=== PATIENT | female | born 1935 | race Caucasian/White ===

== ENCOUNTER → 2017-01-03 | Outpatient (CLI) | payer OTHER ==
[~2017-01-03] MED LIST: ASPI81TA28 PO; ATOR10TA88 PO; CEPH500C2 PO; CITA20TA9 PO; CYM/30 PO; GLIM2TAB2 PO; LISI5TAB PO
[2017-01-03 09:47] LABS: BASO % 0.7 %; BASO ABS # 0.04 K/uL (0-0.2); COMPLETE YES; EOS % 1.5 %; HEMATOCRIT 48.1 % (37-47); IG% 0.2 %; LYMPH % 17.8 %; LYMPH ABS # 1.06 K/uL (1.2-3.4); MEAN CELL VOLUME 91.6 fL (80-100); MEAN CORPUSCULAR HGB CONC 33.9 g/dl (32-36); MEAN PLATELET VOLUME 12.5 fL (7.4-10.4); MONO % 7.7 %; NEUT % 72.1 %; PLATELET COUNT 178 K/uL (130-400); RED BLOOD COUNT 5.25 M/uL (4.2-5.4); WHITE BLOOD COUNT 5.94 K/uL (4.8-10.8)
[2017-01-03 10:01] LABS: ESTIMATED AVERAGE GLUCOSE 114 mg/dl; HA1C FLAG Normal (Normal)
[2017-01-03 10:34] LABS: ALT/SGPT 28 U/L (12-78); AST/SGOT 24 U/L (15-37); BLOOD UREA NITROGEN 14 mg/dl (7-18); BUN/CREATININE RATIO 20.8 (10-20); CALCIUM 8.6 mg/dl (8.5-10.1); CARBON DIOXIDE 31 mmol/L (21-32); CHLORIDE 108 mmol/L (98-107); CHOLESTEROL 98 mg/dl (0-200); CREATININE 0.67 mg/dl (0.60-1.20); GLUCOSE 99 mg/dl (70-99); SODIUM 145 mmol/L (136-145); TRIGLYCERIDES 91 mg/dl (0-150); VERY LOW DENSITY LIPOPROT CALC 18 mg/dl
[2017-01-03 10:36] LABS: ALB/GLOB RATIO 1.1 (0.9-2); ALKALINE PHOSPHATASE 61 U/L (45-117); CHOLESTEROL/HDL RATIO 1.8; HDL CHOLESTEROL 55 mg/dl; LDL CHOLESTEROL CALCULATED 25 mg/dl
[2017-01-03 11:56] LABS: RATIO 5.9 mcg/mg (0-30.0)
== END | disposition home or self-care (01) ==
LOC: C.LAB 08:39
PROVIDERS: ATTEND Nurse Practitioner Family
DX: E11.9 Type 2 diabetes mellitus without complications (principal); F32.9 Major depressive disorder, single episode, unspecified; E78.5 Hyperlipidemia, unspecified; I11.9 Hypertensive heart disease without heart failure

== ENCOUNTER 2017-03-14 11:42 | Observation (INO) | payer OTHER ==
[~2017-03-14] VITALS: Ht 154.9 cm; Wt 80.0 kg
[~2017-03-14 11:42] MED LIST changes: +ATOR10TA82 PO; -ATOR10TA88 PO; -CEPH500C2 PO; -CYM/30 PO
[2017-03-14] MEDS ORDERED: LORAZEPAM 2 MG/ML 1 ML VIAL IV STA (12:31)
[2017-03-14] MEDS ORDERED: SODIUM CHLORIDE 0.9% 1000ML 1,000 ML IV STA (12:31)
[2017-03-14] MEDS ORDERED: FENTANYL CITRATE INJ 50 MCG/1 ML 2 ML VIAL IV STA (12:31)
[2017-03-14] MEDS ORDERED: CYM/30 PO (12:34)
--- NOTE | 2017-03-14 12:34 | EMERGENCY ROOM VISIT NOTE ---
History Report prepared by Digna: Fawad Massey Under the Supervision of: Dr. Gina Salter M.D. First contact with patient: 12:05 Chief Complaint: FALL Stated Complaint: FALL History of Present Illness The patient is a 81 year old female who presents to the Emergency Room with complaints of a sudden fall prior to arrival today. She says that she was walking on weak wooden steps outside her house, and the steps gave out, causing the patient's legs to fall through the wooden steps. The patient now has bilateral leg pain, with lacerations on both her legs. She denies any pain above her hips, and she says that she did not hit her head. She states that her heart rate may be high because she has been anxious after the fall. The patient is able to lift her legs off of the bed. She does have a history of atrial flutter. The patient has a history of 2 knee replacements. She says that she has a history of some foot problems. Per the nursing staff, the patient's blood sugar is 201. Source of History: patient, family Onset: Prior to arrival today Position: other (global - fall) Quality: other (legs falling through wooden steps) Timing: other (sudden) Note: Associated symptoms: Bilateral leg pain, with lacerations on both legs. Currently anxious. Denies any pain above hip or hitting her head. Review of Systems See HPI for pertinent positives & negatives. A total of 10 systems reviewed and were otherwise negative. Past Medical & Surgical Medical Problems: (1) Arthritis (2) Diabetes Surgical Problems: (1) Previous back surgery Family History Cancer Heart disease Social History Smoking Status: Never Smoker Alcohol Use: none Drug Use: none Marital Status: Housing Status: lives with family Occupation Status: retired Current/Historical Medications Scheduled Aspirin (Aspirin Ec), 81 MG PO DAILY Atorvastatin (Lipitor), 10 MG PO DAILY Duloxetine HCl (Cymbalta), 30 MG PO DAILY Glimepiride (Glimepiride), 2 MG PO DAILY Lisinopril (Prinivil), 5 MG PO DAILY Allergies Coded Allergies: Adhesives (Unverified Allergy, Mild, RASH, 10/13/06) Codeine (Unverified Allergy, Mild, 11/28/09) Meperidine (Unverified Adverse Reaction, Unknown, 11/28/09) NAUSEA Morphine (Unverified Adverse Reaction, Unknown, 11/28/09) SEVERE N&V Physical Exam Vital Signs Date Time Temp Pulse Resp B/P Pulse Ox O2 Delivery O2 Flow Rate FiO2 03/14/17 20:10 97 Nasal Cannula 4.0 03/14/17 20:10 37.0 100 18 103/70 97 Nasal Cannula 4.0 03/14/17 19:45 36.2 99 16 132/81 94 Nasal Cannula 4 03/14/17 19:35 96 16 127/82 96 Nasal Cannula 4 03/14/17 19:25 94 16 137/80 96 Mask 10 03/14/17 19:15 101 16 150/90 96 Mask 10 03/14/17 19:05 36.2 114 16 143/72 94 Mask 10 03/14/17 16:24 96 Nasal Cannula 2.0 03/14/17 16:18 110 18 102/64 96 Nasal Cannula 2.0 03/14/17 15:00 113 16 105/74 97 Nasal Cannula 2.0 03/14/17 14:03 93 16 112/66 94 Nasal Cannula 2.0 03/14/17 13:49 100 16 103/63 92 Nasal Cannula 2.0 03/14/17 13:31 95 18 110/58 91 Nasal Cannula 2.0 03/14/17 13:19 94 16 127/91 94 Nasal Cannula 2.0 03/14/17 13:03 96 03/14/17 12:55 101 16 132/93 98 Nasal Cannula 2.0 03/14/17 12:50 132 16 122/96 94 Room Air 03/14/17 12:49 130 131/84 03/14/17 12:19 151 03/14/17 11:57 36.5 120 20 114/79 94 Room Air Physical Exam Vital signs reviewed. General: Generally well-appearing 81 year old female , in no significant distress. HEENT: No scleral icterus, PERRLA, neck supple. Atraumatic. Cardiovascular: Tachycardic and regular, no extra sounds. Pulmonary: Clear to auscultation bilaterally, normal work of breathing. Abdomen: Obese, soft and nontender abdomen. Musculoskeletal: Right crabtree has a large 25 cm v-shaped laceration across crabtree. There is a large hematoma, bleeding is controlled. Left leg has a smaller 7 cm laceration and 1 cm puncture wound with bleeding controlled. Both were full thickness in the muscle. Positive violation of fascia. Cervical, thoracic and lumbar spine are palpated, nontender, no step-off or deformity appreciated. Neurologic: Patient awake alert and oriented x 3, full strength in all 4 extremities. Neurovascularly intact to bilateral lower extremity distally. Skin: Warm, dry, no rash. No significant abrasions/laceration. Medical Decision & Procedures ER Provider Diagnostic Interpretation: X-ray results as stated below per interpretation by me and the radiologist: LEFT TIBIA/FIBULA 2 VIEWS ROUTINE CLINICAL HISTORY: Fall. Laceration. COMPARISON: Left ankle radiographs July 14, 2016. FINDINGS: A wound of the left lower leg is noted. Alignment of the total left knee arthroplasty is anatomic. There is no acute fracture of the left tibia or fibula. An equivocal punctate foreign body projects over the mid shaft of the left tibia. IMPRESSION: 1. No acute fracture of the left tibia or fibula. 2. Laceration overlying the mid shaft of the left tibia. Punctate radiodensity adjacent to the wound could reflect debris or tiny foreign body. 3. Intact total left knee arthroplasty. Electronically signed by: Jorge Carlson M.D. 03/14/2017 1:40 PM Dictated Date/Time: 03/14/2017 1:38 PM RIGHT TIBIA/FIBULA 2 VIEWS ROUTINE CLINICAL HISTORY: Fall. Large laceration. COMPARISON: None FINDINGS: Alignment of the total right knee arthroplasty is anatomic. No periprosthetic fracture or lucency. There is multiple locules of soft tissue gas within the right leg at the level the right knee and proximal right tibia and fibula. There is extensive soft tissue swelling. IMPRESSION: 1. No acute fracture of the right tibia or fibula. Status post total right knee arthroplasty. Hardware intact. 2. Soft tissue gas consistent with laceration with marked soft tissue swelling of the right leg at the level of the knee and proximal right tibia/fibula. Electronically signed by: Jorge Carlson M.D. 03/14/2017 1:34 PM Dictated Date/Time: 03/14/2017 1:32 PM SINGLE VIEW PELVIS CLINICAL HISTORY: Fall. FINDINGS: An AP portable pelvic radiograph is obtained. No prior studies are available for comparison at the time of dictation. The skeletal structures are osteopenic. No fracture is identified involving the hips or bony pelvis. Mild arthritic change is seen in the hips with associated joint space narrowing. Mild sclerotic change is noted in the sacroiliac joints and pubic symphysis. Lumbosacral spondylosis is partially visualized. Numerous phlebolith are identified in the pelvis. Surgical clips and suture material project over the pelvis. The overlying soft tissues are within normal limits. IMPRESSION: Osteopenia and degenerative change as above. There is no radiographic evidence of fracture involving the hips or bony pelvis. Electronically signed by: Ricardo Chris M.D. 03/14/2017 1:34 PM Dictated Date/Time: 03/14/2017 1:33 PM SINGLE VIEW CHEST CLINICAL HISTORY: Fall. FINDINGS: An AP, portable, upright chest radiograph is compared to study dated 08/17/2015. The examination is degraded by portable technique, apical lordotic positioning, and patient rotation. The heart is mildly enlarged and there is atherosclerotic calcification of the thoracic aorta. A large hiatal hernia is noted and there is atelectasis at the left lung base. No airspace consolidation is seen typical for pneumonia and there is no large pleural effusion. Chronic interstitial thickening is unchanged. No pneumothorax is seen. The skeletal structures are osteopenic. The bony thorax is grossly intact. Arthritic change is noted in the shoulders and thoracic spine. Surgical clips are identified in the right axilla. IMPRESSION: 1. Mild cardiac enlargement with no acute cardiopulmonary abnormality. 2. Hiatal hernia. Electronically signed by: Ricardo Chris M.D. 03/14/2017 1:36 PM Dictated Date/Time: 03/14/2017 1:34 PM Laboratory Results 03/14/17 12:15 Red Blood Count 5.33, Mean Corpuscular Volume 88.7, Mean Corpuscular Hemoglobin 30.6, Mean Corpuscular Hemoglobin Concent 34.5, Mean Platelet Volume 11.9, Neutrophils (%) (Auto) 84.5, Lymphocytes (%) (Auto) 9.9, Monocytes (%) (Auto) 4.7, Eosinophils (%) (Auto) 0.3, Basophils (%) (Auto) 0.3, Neutrophils # (Auto) 12.79, Lymphocytes # (Auto) 1.50, Monocytes # (Auto) 0.71, Eosinophils # (Auto) 0.05, Basophils # (Auto) 0.05 03/14/17 12:15 Test 03/14/17 12:10 03/14/17 12:15 03/14/17 12:41 03/14/17 13:00 Bedside Glucose 201 mg/dl (70-90) White Blood Count 15.15 K/uL (4.8-10.8) Red Blood Count 5.33 M/uL (4.2-5.4) Hemoglobin 16.3 g/dL (12.0-16.0) Hematocrit 47.3 % (37-47) Mean Corpuscular Volume 88.7 fL (80-100) Mean Corpuscular Hemoglobin 30.6 pg (25-34) Mean Corpuscular Hemoglobin Concent 34.5 g/dl (32-36) Platelet Count 237 K/uL (130-400) Mean Platelet Volume 11.9 fL (7.4-10.4) Neutrophils (%) (Auto) 84.5 % Lymphocytes (%) (Auto) 9.9 % Monocytes (%) (Auto) 4.7 % Eosinophils (%) (Auto) 0.3 % Basophils (%) (Auto) 0.3 % Neutrophils # (Auto) 12.79 K/uL (1.4-6.5) Lymphocytes # (Auto) 1.50 K/uL (1.2-3.4) Monocytes # (Auto) 0.71 K/uL (0.11-0.59) Eosinophils # (Auto) 0.05 K/uL (0-0.5) Basophils # (Auto) 0.05 K/uL (0-0.2) RDW Standard Deviation 41.6 fL (36.4-46.3) RDW Coefficient of Variation 12.9 % (11.5-14.5) Immature Granulocyte % (Auto) 0.3 % Immature Granulocyte # (Auto) 0.05 K/uL (0.00-0.02) Prothrombin Time 10.9 SECONDS (9.0-12.0) Prothromb Time International Ratio 1.0 (0.9-1.1) Activated Partial Thromboplast Time 27.1 SECONDS (21.0-31.0) Partial Thromboplastin Ratio 1.0 Anion Gap 12.0 mmol/L (3-11) Est Creatinine Clear Calc Drug Dose 46.9 ml/min Estimated GFR () 67.7 Estimated GFR (Non- 58.5 BUN/Creatinine Ratio 15.9 (10-20) Calcium Level 8.8 mg/dl (8.5-10.1) Total Bilirubin 0.7 mg/dl (0.2-1) Direct Bilirubin 0.1 mg/dl (0-0.2) Aspartate Amino Transf (AST/SGOT) 23 U/L (15-37) Alanine Aminotransferase (ALT/SGPT) 33 U/L (12-78) Alkaline Phosphatase 66 U/L (45-117) Total Protein 6.9 gm/dl (6.4-8.2) Albumin 3.6 gm/dl (3.4-5.0) Bedside Troponin I 0.000 ng/ml (0-0.045) Urine Color DK YELLOW Urine Appearance CLOUDY (CLEAR) Urine pH 5.0 (4.5-7.5) Urine Specific Hanna 1.020 (1.000-1.030) Urine Protein NEG (NEG) Urine Glucose (UA) NEG (NEG) Urine Ketones TRACE (NEG) Urine Occult Blood NEG (NEG) Urine Nitrite NEG (NEG) Urine Bilirubin NEG (NEG) Urine Urobilinogen NEG (NEG) Urine Leukocyte Esterase NEG (NEG) Urine WBC (Auto) 1-5 /hpf (0-5) Urine RBC (Auto) 0-4 /hpf (0-4) Urine Hyaline Casts (Auto) 5-10 /lpf (0-5) Urine Epithelial Cells (Auto) >30 /lpf (0-5) Urine Bacteria (Auto) 1+ (NEG) Urine Crystals CALCIUM OXALATE (NONE Laboratory results per my review. Medications Administered Medications (Trade) Dose Ordered Sig/Josy Route Start Time Stop Time Status Last Admin Dose Admin Sodium Chloride (Nss 1000ml) 1,000 ml @ 125 mls/hr Q8H STAT IV 03/14/17 12:31 03/14/17 20:30 DC 03/14/17 12:46 125 MLS/HR Lorazepam (Ativan Inj) 0.5 mg NOW STAT IV 03/14/17 12:31 03/14/17 12:36 DC 03/14/17 13:31 0.5 MG Fentanyl Citrate (Fentanyl Inj) 25 mcg NOW STAT IV 03/14/17 12:31 03/14/17 12:36 DC 03/14/17 13:20 25 MCG Metoprolol Tartrate (Lopressor Iv) 5 mg NOW STAT IV 03/14/17 12:36 03/14/17 12:37 DC 03/14/17 12:49 5 MG Bacitracin (Bacitracin Inj) 50,000 units STK-MED ONCE .ROUTE 03/14/17 16:45 03/14/17 16:46 DC 03/14/17 18:20 50,000 UNITS Bupivacaine HCl/ Epinephrine Bitart (BUPIVACAINE/EPI 0.25% Inj 1:200,000) 30 ml STK-MED ONCE .ROUTE 03/14/17 18:24 03/14/17 18:25 DC 03/14/17 18:35 60 ML Bupivacaine HCl/ Epinephrine Bitart (BUPIVACAINE/EPI 0.25% Inj 1:200,000) 30 ml STK-MED ONCE .ROUTE 03/14/17 18:38 03/14/17 18:39 DC 03/14/17 18:35 40 ML ECG Indication: other (fall) Rate (beats per minute): 133 Rhythm: other (sinus tachycardia versus rapid atrial flutter) Findings: Q waves (inferior and anterior lateral ), left axis deviation, no ectopy, other (nonspecific ST change) Change: Repeat ECG: Normal sinus rhythm at 95 bpm, inferior anterior lateral q waves, incomplete right bundle branch block, LVH, repolarization abnormality, no ectopy , no acute ischemic changes. ED Course 1224: Past medical records reviewed. The patient was evaluated in room C2B. A complete history and physical examination was performed. 1231: Ordered Fentanyl Inj 25 mcg IV, Ativan Inj 0.5 mg IV, NSS 1000 ml @ 125 mls/hr IV. 1236: Ordered Lopressor IV 5 mg IV. 1245: Ordered Buffered Xylocaine/Epinephrine 1% Inj 60 ml INFIL. 1424: I discussed the patient with Dr. [facility]. 1520: I discussed the patient with Isaiah Menendez (Dr. Mederos's PA-C) - he will bring the patient to the operating room. 1522: I reevaluated the patient and she is resting. The patient verbally expressed understanding and agreement of the treatment plan. The patient will be brought to the operating room. Medical Decision Trauma: Intracranial injury, cervical spine injury, intrathoracic injury, intra- abdominal injury, musculoskeletal injury. This patient was evaluated and appeared to be anxious. Physical examination reveals 2 large lacerations, right greater than left lower extremities over the crabtree. X-rays are negative for acute bony fracture. The wounds were irrigated and approximated to the best ability by Chico Knight PA-C in the emergency department. Orthopedics was consulted, Dr. Mederos. The patient does have bilateral TKA's and is high risk for poor healing with the complexity of the right lower extremity wound. Dr. Aparicio PA did see the patient in the emergency department and they have made arrangements for admission and operative intervention. The patient family were made aware of the findings and agree. Consults Time Called: 1420 Consulting Physician: Dr. [facility] Returned Call: 1424 I discussed the patient with Dr. [facility]. Additional Consults: Time Called: 1515 Consulted Physician: Isaiah Menendez (Dr. Alessandra ALVAREZ) Returned Call: 1520 Additional Comments: I discussed the patient with Isaiah Menendez (Dr. Alessandra ALVAREZ) - he will bring the patient to the operating room. Impression Primary Impression: Fall (on) (from) other stairs and steps, initial encounter Additional Impressions: Laceration of skin of right lower leg Laceration of skin of left lower leg Scribe Attestation The scribe's documentation has been prepared under my direction and personally reviewed by me in its entirety. I confirm that the note above accurately reflects all work, treatment, procedures, and medical decision making performed by me. Departure Information Dispostion Being Evaluated By Hospitalist Referrals Adriano Prabhakar III, CRNP (PCP) Patient Instructions My [facility] Problem Qualifiers Additional Impressions: Laceration of skin of right lower leg Encounter type: initial encounter Qualified Codes: S81.811A - Laceration without foreign body, right lower leg, initial encounter Laceration of skin of left lower leg Encounter type: initial encounter Qualified Codes: S81.812A - Laceration without foreign body, left lower leg, initial encounter
[2017-03-14] MEDS ORDERED: METOPROLOL TARTRATE 1 MG/ML VIAL IV STA (12:36)
[2017-03-14] MEDS ORDERED: LIDO/EPINEPHRINE/SOD BICARB 20 ML VIAL INFIL ONE (12:45)
[2017-03-14 12:55] LABS: BASO % 0.3 %; BASO ABS # 0.05 K/uL (0-0.2); COMPLETE YES; EOS % 0.3 %; HEMATOCRIT 47.3 % (37-47); IG% 0.3 %; LYMPH % 9.9 %; MEAN CELL VOLUME 88.7 fL (80-100); MEAN CORPUSCULAR HEMOGLOBIN 30.6 pg (25-34); MEAN CORPUSCULAR HGB CONC 34.5 g/dl (32-36); MEAN PLATELET VOLUME 11.9 fL (7.4-10.4); MONO % 4.7 %; NEUT % 84.5 %; PLATELET COUNT 237 K/uL (130-400); RED BLOOD COUNT 5.33 M/uL (4.2-5.4); WHITE BLOOD COUNT 15.15 K/uL (4.8-10.8)
[2017-03-14 13:03] LABS: PROTHROMBIN TIME (PATIENT) 10.9 SECONDS (9.0-12.0)
[2017-03-14 13:05] LABS: BUN/CREATININE RATIO 15.9 (10-20); CALCIUM 8.8 mg/dl (8.5-10.1); CREATININE 0.93 mg/dl (0.60-1.20); POTASSIUM 3.8 mmol/L (3.5-5.1)
[2017-03-14 13:29] LABS: URINE APPEARANCE CLOUDY (CLEAR); URINE BILIRUBIN NEG (NEG); URINE COLOR DK YELLOW; URINE EPITHELIAL CELL AUTO >30 /lpf (0-5); URINE NITRITE NEG (NEG); UROBILINOGEN NEG (NEG); ZZUR CULT IF INDIC CLEAN CATCH YES
[2017-03-14 13:36] LABS: MANUAL MICROSCOPIC REQUIRED? NO; REVIEW REQ? YES
--- NOTE | 2017-03-14 13:36 | DIAGNOSTIC IMAGING REPORT ---
RIGHT TIBIA/FIBULA 2 VIEWS ROUTINE CLINICAL HISTORY: Fall. Large laceration. COMPARISON: None FINDINGS: Alignment of the total right knee arthroplasty is anatomic. No periprosthetic fracture or lucency. There is multiple locules of soft tissue gas within the right leg at the level the right knee and proximal right tibia and fibula. There is extensive soft tissue swelling. IMPRESSION: 1. No acute fracture of the right tibia or fibula. Status post total right knee arthroplasty. Hardware intact. 2. Soft tissue gas consistent with laceration with marked soft tissue swelling of the right leg at the level of the knee and proximal right tibia/fibula. Electronically signed by: Jorge Carlson M.D. 03/14/2017 1:34 PM Dictated Date/Time: 03/14/2017 1:32 PM
--- NOTE | 2017-03-14 13:36 | DIAGNOSTIC IMAGING REPORT ---
SINGLE VIEW PELVIS CLINICAL HISTORY: Fall. FINDINGS: An AP portable pelvic radiograph is obtained. No prior studies are available for comparison at the time of dictation. The skeletal structures are osteopenic. No fracture is identified involving the hips or bony pelvis. Mild arthritic change is seen in the hips with associated joint space narrowing. Mild sclerotic change is noted in the sacroiliac joints and pubic symphysis. Lumbosacral spondylosis is partially visualized. Numerous phlebolith are identified in the pelvis. Surgical clips and suture material project over the pelvis. The overlying soft tissues are within normal limits. IMPRESSION: Osteopenia and degenerative change as above. There is no radiographic evidence of fracture involving the hips or bony pelvis. Electronically signed by: Ricardo Chris M.D. 03/14/2017 1:34 PM Dictated Date/Time: 03/14/2017 1:33 PM
--- NOTE | 2017-03-14 13:37 | DIAGNOSTIC IMAGING REPORT ---
SINGLE VIEW CHEST CLINICAL HISTORY: Fall. FINDINGS: An AP, portable, upright chest radiograph is compared to study dated 08/17/2015. The examination is degraded by portable technique, apical lordotic positioning, and patient rotation. The heart is mildly enlarged and there is atherosclerotic calcification of the thoracic aorta. A large hiatal hernia is noted and there is atelectasis at the left lung base. No airspace consolidation is seen typical for pneumonia and there is no large pleural effusion. Chronic interstitial thickening is unchanged. No pneumothorax is seen. The skeletal structures are osteopenic. The bony thorax is grossly intact. Arthritic change is noted in the shoulders and thoracic spine. Surgical clips are identified in the right axilla. IMPRESSION: 1. Mild cardiac enlargement with no acute cardiopulmonary abnormality. 2. Hiatal hernia. Electronically signed by: Ricardo Chris M.D. 03/14/2017 1:36 PM Dictated Date/Time: 03/14/2017 1:34 PM
--- NOTE | 2017-03-14 13:41 | DIAGNOSTIC IMAGING REPORT ---
LEFT TIBIA/FIBULA 2 VIEWS ROUTINE CLINICAL HISTORY: Fall. Laceration. COMPARISON: Left ankle radiographs July 14, 2016. FINDINGS: A wound of the left lower leg is noted. Alignment of the total left knee arthroplasty is anatomic. There is no acute fracture of the left tibia or fibula. An equivocal punctate foreign body projects over the mid shaft of the left tibia. IMPRESSION: 1. No acute fracture of the left tibia or fibula. 2. Laceration overlying the mid shaft of the left tibia. Punctate radiodensity adjacent to the wound could reflect debris or tiny foreign body. 3. Intact total left knee arthroplasty. Electronically signed by: Jorge Carlson M.D. 03/14/2017 1:40 PM Dictated Date/Time: 03/14/2017 1:38 PM
--- NOTE | 2017-03-14 16:08 | EMERGENCY ROOM VISIT NOTE ---
ED Visit Note Patient was seen and evaluated by Dr. Salter. I was asked to assess the wound, cleanse the wound via irrigation and then close the leg wounds. Risks and benefits of performing primary wound closure versus no repair were discussed with the patient who verbalizes understanding. Verbal consent was obtained prior to performing the procedure. 18 cc of 1% buffered lidocaine with epinephrine was used to anesthetize the left leg anterior crabtree 25cm laceration. The wound was cleansed and prepped in the typical sterile fashion utilizing normal saline and Betadine. The wound was sterilely draped. Once proper anesthetization was established, the wound was further examined and demonstrated deep involvement down to the level of muscle. The wound was copiously irrigated with 2L of normal saline. The wound was closed using 11 vicryl interrupted buried simple sutures of 4-0 followed by 13-0 nylon sutures with the wound edges being decently approximated. Patient tolerated the procedure well. No complications were met. The left leg was also preped with Betadine, irrigated with normal saline and then closed using 6 interrupted nylon sutures. The left leg laceration was 8cm in length (7cm +1 puncture laterally) Patient tolerated the procedure well. No complications were met. Pt. is to go to OR for definite washout and closure this evening. Total laceration length: 25+8 = 33 Cm Total amount of buffered lidocaine with epi: 22mL
[2017-03-14 16:24] VITALS: O2SAT 96; Ht 154.9 cm; Wt 80.0 kg
--- NOTE | 2017-03-14 16:44 | HISTORY & PHYSICAL EXAMINATION ---
DATE OF ADMISSION: 03/14/2017 CHIEF COMPLAINT: She presents to the office today for a fall and a laceration on her right and left lower extremities. HISTORY OF PRESENT ILLNESS: Liliya is a very pleasant 81-year-old female first presented to the Emergency Room with complaint of a sudden fall. She stated that she was walking on some weak wooden steps outside of her house. The steps gave out and she fell forward having her legs falls to the wooden steps. When she fell to the wooden step she sustained a fairly significant laceration to her left lower extremity. To a lesser extent, she had sustained another laceration to her right lower extremity. She denies any pain above the level of her knees. No other lacerations. She did not lose consciousness. She states that her heart rate may have been high because she was anxious after the fall. The patient is able to lift her legs off the bed. She does have a history of atrial flutter. The patient has a history of 2 knee replacements. She states that she has a history of some foot problems. She is a diabetic as well. PAST MEDICAL HISTORY: Positive for arthritis and diabetes. PAST SURGICAL HISTORY: Includes: 1. Bilateral total knee arthroplasty. 2. Appendectomy. 3. Bilateral shoulder surgeries. 4. Previous back surgery. FAMILY MEDICAL HISTORY: Positive for cancer and heart disease. SOCIAL HISTORY: She is a nonsmoker, does not use alcohol. No drugs use. She is . She lives with her family and she is retired. REVIEW OF SYSTEMS: Review of systems was dictated in the ER H\T\P. Please refer to that. ALLERGIES TO MEDICATIONS: INCLUDE ADHESIVES, CODEINE, MEPERIDINE, AND MORPHINE. CURRENT MEDICATIONS: Include aspirin 81 mg daily, atorvastatin 10 mg daily, duloxetine 30 mg daily, glimepiride 2 mg and lisinopril 5 mg daily. PHYSICAL EXAMINATION: VITAL SIGNS: Include a pulse of 93, respirations of 16, blood pressure of 112/66, pulse ox is 94 and that is on nasal cannula with 2 liters per minute flow rate. GENERAL: She is well appearing, no immediate distress. HEENT: No scleral icterus. She has PERRLA. NECK: Soft and subtle. CARDIOVASCULAR: She is tachycardic and regular, no extra sounds. PULMONARY: Clear to auscultation bilaterally. ABDOMEN: She has obese, soft and nontender abdomen with palpation. No bruises noted upon auscultation. MUSCULOSKELETAL: The right lower extremity has a large 15 cm laceration across the crabtree extending from the medial aspect all the way to the lateral aspect. There is a large hematoma, bleeding is controlled. The left leg has a small 6 cm laceration with bleeding is well controlled. There is a positive violation of the fascia. NEUROLOGIC: She is awake, alert, alert and oriented x3. Full strength in all 4 extremities. She is neurovascularly intact bilateral lower extremities distal to the injury. IMAGING DATA: X-rays of the left tib-fib were taken today. There is no radiographic evidence of any fractures. There are no acute fractures of the left lower extremity. There is a finding of an equivocal punctate foreign body object over the mid shaft of the left tibia. With regard to the right tib-fib, there are no acute fractures noted. There is no periprosthetic fracture or lucency suggestive of any foreign body. IMPRESSION: 1. No acute fractures of the left tibia and fibula. 2. A significant 15 cm laceration to the right lower extremity. 3. A smaller laceration to the left lower extremity. PLAN: We are going to preop her and take her over to the operating room here at [facility]. She says that she has had problems with general anesthetic before we may consider a nerve block. Once we get her into the operating room, we will do a through clean out and debridement of both lacerations on her lower extremities. We will then precede to close the laceration. We possibly anticipate her staying one night in the hospital tonight and possible discharge tomorrow. We did discuss the surgery with her. Discussed the risks and benefits. She is amenable to that. We did talk about follow up in our office approximately 7-10 days for suture removal and evaluation.
[2017-03-14] MEDS ORDERED: LIDOCAINE/EPINEPHRINE 1% 20 ML VIAL ONE (16:45)
[2017-03-14] MEDS ORDERED: BUPIVACAINE 0.5 % 5 MG/1 ML MPF 30ML VIAL ONE (16:45)
[2017-03-14] MEDS ORDERED: BACITRACIN 50000 UNIT VIAL ONE (16:45)
[2017-03-14] MEDS ORDERED: FENTANYL CITRATE INJ 50 MCG/1 ML 2 ML VIAL ONE (16:53)
[2017-03-14] MEDS ORDERED: ONDANSETRON INJ 2 MG/ML 2 ML VIAL ONE (16:54)
[2017-03-14] MEDS ORDERED: LIDOCAINE HCL 2% 2 ML VIAL (20MG/ML) ONE (16:54)
[2017-03-14] MEDS ORDERED: PROPOFOL IV EMULSION 10 MG/ML 20 ML VIAL IV ONE ×2 (16:54→17:21)
[2017-03-14] MEDS ORDERED: MIDAZOLAM HCL 1 MG/ML 2ML VIAL ONE (17:22)
--- NOTE | 2017-03-14 17:29 | Discharge Instructions ---
Discharge Instructions Date of Service March 14, 2017. Admission Reason for Admission: FALL Discharge Discharge Diagnosis / Problem: Laceration both legs Discharge Goals Goal(s): Decrease discomfort, Improve function Activity Recommendations Activity Limitations: as noted below . Instructions / Follow-Up Instructions / Follow-Up Leave dressing clean and dry until follow-up in clinic this week, follow-up with Dr Hernández on Tuesday [phone] Current Hospital Diet Patient's current hospital diet: Diabetes Type 2 Diet Discharge Diet Recommended Diet: Diabetes Type 2 Diet Pending Studies Studies pending at discharge: no Laboratory Results Hemoglobin A1c Test 01/03/17 08:59 Range/Units Estimated Average Glucose 114 mg/dl Hemoglobin A1c 5.6 4.5-5.6 % Lipid Panel Test 01/03/17 08:59 Range/Units Triglycerides Level 91 0-150 mg/dl Cholesterol Level 98 0-200 mg/dl HDL Cholesterol 55 mg/dl Cholesterol/HDL Ratio 1.8 LDL Cholesterol, Calculated 25 mg/dl Medical Emergencies . Who to Call and When: Medical Emergencies: If at any time you feel your situation is an emergency, please call 911 immediately. . Non-Emergent Contact Non-Emergency issues call your: Surgeon Call Non-Emergent contact if: wound has increased drainage, wound has increased redness . "Provider Documentation" section prepared by Isaiah Mederos. . VTE Core Measure Inpt VTE Proph given/why not?: Treatment not indicated
[2017-03-14] MEDS ORDERED: SOD PHOSPHATE/SOD BIPHOSPHATE ENEMA 132 ML BTL PR PRN (17:30)
[2017-03-14] MEDS ORDERED: MAGNESIUM HYDROXIDE SUSP 30 ML UDC PO PRN (17:30)
[2017-03-14] MEDS ORDERED: ONDANSETRON INJ 2 MG/ML 2 ML VIAL IV PRN ×2 (17:30→18:00)
[2017-03-14] MEDS ORDERED: METOCLOPRAMIDE HCL INJ 5 MG/ML 2 ML VIAL IV PRN (17:30)
[2017-03-14] MEDS ORDERED: BISACODYL 10 MG SUPP PR PRN (17:30)
[2017-03-14] MEDS ORDERED: ATROPINE SULFATE 0.1 MG/ML 5ML SYR IV PRN (18:00)
[2017-03-14] MEDS ORDERED: EpHEDrine SULFATE INJ 50 MG/ML AMP IV PRN (18:00)
[2017-03-14] MEDS ORDERED: FENTANYL CITRATE INJ 50 MCG/1 ML 2 ML VIAL IV PRN (18:00)
[2017-03-14] MEDS ORDERED: LABETALOL HCL IV 5 MG/ML 20ML IV PRN (18:00)
[2017-03-14] MEDS ORDERED: HYDROmorphone INJ 1 MG/ML SYR IV PRN (18:00)
[2017-03-14] MEDS ORDERED: BUPIVACAINE/EPINEPHRINE 0.25% 1:200,000 30 ML VIAL ONE ×2 (18:24→18:38)
[2017-03-14] MEDS ORDERED: DEXAMETHASONE SOD INJ 4 MG/ML VIAL ONE (18:24)
--- NOTE | 2017-03-14 18:50 | [facility] Post Operative Brief Note ---
Immediate Operative Summary Operative Date March 14, 2017. Pre-Operative Diagnosis Laceration of bilateral legs Post-Operative Diagnosis Laceration of bilateral legs Procedure(s) Performed Washout Repair Large Laceration Left Lower Leg, Washout Repair Small Right Leg Laceration Surgeon Dr. Mederos Estimated Blood Loss 20ml Findings as above Specimens For Culture: 1. Laceration of Right Leg - Gram Stain, C+S, Aerobic/Anaerobic - Routine Complication(s) None Disposition Recovery Room / PACU
--- NOTE | 2017-03-14 20:04 | Anesthesiology Progress Note ---
Anesthesia Post Op Note Date & Time March 14, 2017 at 20:04 Vital Signs Pain Intensity: 0 Vital Signs Past 12 Hours Date Time Temp Pulse Resp B/P Pulse Ox O2 Delivery O2 Flow Rate FiO2 03/14/17 19:45 36.2 99 16 132/81 94 Nasal Cannula 4 03/14/17 19:35 96 16 127/82 96 Nasal Cannula 4 03/14/17 19:25 94 16 137/80 96 Mask 10 03/14/17 19:15 101 16 150/90 96 Mask 10 03/14/17 19:05 36.2 114 16 143/72 94 Mask 10 03/14/17 16:24 96 Nasal Cannula 2.0 03/14/17 16:18 110 18 102/64 96 Nasal Cannula 2.0 03/14/17 15:00 113 16 105/74 97 Nasal Cannula 2.0 03/14/17 14:03 93 16 112/66 94 Nasal Cannula 2.0 03/14/17 13:49 100 16 103/63 92 Nasal Cannula 2.0 03/14/17 13:31 95 18 110/58 91 Nasal Cannula 2.0 03/14/17 13:19 94 16 127/91 94 Nasal Cannula 2.0 03/14/17 13:03 96 03/14/17 12:55 101 16 132/93 98 Nasal Cannula 2.0 03/14/17 12:50 132 16 122/96 94 Room Air 03/14/17 12:49 130 131/84 03/14/17 12:19 151 03/14/17 11:57 36.5 120 20 114/79 94 Room Air Notes Mental Status: alert / awake / arousable, participated in evaluation Pt Amnestic to Procedure: Yes Nausea / Vomiting: adequately controlled Pain: adequately controlled Airway Patency, RR, SpO2: stable & adequate BP & HR: stable & adequate Hydration State: stable & adequate Anesthetic Complications: no major complications apparent
[2017-03-14 20:10] VITALS: BP 103/70; PULSE 100; TEMP 37; O2SAT 97
[2017-03-14 20:37] VITALS: BP 99/68; PULSE 92; TEMP 36.6; O2SAT 96
[2017-03-14] MEDS: DOCUSATE SODIUM 100 MG CAP PO SCH ×2 (21:00→22:09)
[2017-03-14] MEDS: SENNA 8.6 MG TAB PO SCH ×2 (21:00→22:09)
[2017-03-14 21:10] VITALS: BP 100/66; PULSE 100; TEMP 36.9; O2SAT 94
[2017-03-14] MEDS: CEFAZOLIN IV 2,000 MG in DEXTROSE 5% 50ML 50 ML IV SCH (22:04)
[2017-03-14] MEDS: POTASSIUM CHLORIDE INJ 10 MEQ in SODIUM CHLORIDE 0.9% 1000ML 1,000 ML IV SCH (22:04)
[2017-03-14] MEDS: ACETAMINOPHEN IV 1,000 MG in EMPTY BAG 0 ML IV SCH (22:04)
[2017-03-14] MEDS: KETOROLAC TROMETHAMINE 15 MG/ML VIAL IV. SCH (22:09)
[2017-03-14 22:10] VITALS: BP 90/54; PULSE 96; TEMP 36.8; O2SAT 94
[2017-03-14 23:10] VITALS: BP 96/57; PULSE 92; TEMP 36.9; O2SAT 93
[2017-03-15] VITALS (7 sets, daily range): BP systolic 98–106; BP diastolic 58–63; PULSE 84–97; TEMP 36.6–37.5; O2SAT 92–98
--- NOTE | 2017-03-15 01:41 | OPERATIVE REPORT ---
DATE OF OPERATION: 03/14/2017 PREOPERATIVE DIAGNOSIS: Acute lacerations, bilateral lower extremities. POSTOPERATIVE DIAGNOSIS: Same. PROCEDURE: Irrigation, debridement and laceration closure of both the right and the left leg wounds. SURGEON: Dr. Isaiah Mederos. CASER: None. ANESTHESIA: General. COMPLICATIONS: None. CONDITION: Stable to PACU. INDICATIONS: Liliya is a pleasant 81-year-old female who fell through her porch and sustained lacerations to both of her legs. They are both on the anterior aspects of her tibia. The right laceration was very large, about 22 cm in length. The left leg laceration was smaller, about 5 cm in length. The lacerations went down through the anterior subcutaneous tissue, into some of the muscular tissue and down to the bone, but it did not expose the bone. It was felt it was safest to do an irrigation and debridement and wound closure in the operating room. PROCEDURE: On 03/14/2017, she was brought from the ER to the operating room. The operative extremities were identified and signed. She was taken back to the operating room, laid on the table in supine position and put under general anesthesia. Bilateral lower extremities were then prepped and draped in sterile fashion. Time-out was done, and the patient and operative extremity were properly identified. The loose sutures from the ER were taken out and the wounds were opened up. Cultures were then obtained. The patient was given antibiotics. The right leg wound was done first. It was a much larger wound, it was irrigated with 3 L of normal saline solution with bacitracin. All hematomas were removed. A sharp dissection was done of any foreign debris. The skin was then closed with 3-0 nylon suture in a trauma stitch fashion. A couple of Vicryls were used on the deeper layer more anterior. I was able to get a nice closure and 2 Henri drains were placed. Attention was then turned to the left leg. The incision was clean with a pulse lavage and then closed with 3-0 nylon sutures with use of trauma sutures. The wounds were then covered with Xeroform, 4 x 4 gauze, Webril and an Wilfrid wrap. She was then extubated, transferred to a [facility] and taken to the postanesthesia care unit in stable condition. She tolerated the procedure well. I attest to the content of the Intraoperative Record and any orders documented therein. Any exceptions are noted below. ADDENDUM: Postoperatively the incisions were remeasured. A more accurate measurement is a laceration of 22 cm on the right leg 5 cm on the left leg. Each laceration was deep through the subcutaneous tissue and into the muscle. GILBERT
[2017-03-15] MEDS: KETOROLAC TROMETHAMINE 15 MG/ML VIAL IV. SCH ×2 (03:53→09:22)
[2017-03-15] MEDS: ACETAMINOPHEN IV 1,000 MG in EMPTY BAG 0 ML IV SCH ×2 (05:29→13:20)
[2017-03-15] MEDS: CEFAZOLIN IV 2,000 MG in DEXTROSE 5% 50ML 50 ML IV SCH (05:50)
[2017-03-15] MEDS ORDERED: GLIMEPIRIDE 2 MG TAB PO SCH (06:00)
--- NOTE | 2017-03-15 08:11 | Anesthesiology Progress Note ---
Anesthesia Post Op Note Date & Time March 15, 2017 at 08:12 Vital Signs Pain Intensity: 0.0 Vital Signs Past 12 Hours Date Time Temp Pulse Resp B/P Pulse Ox O2 Delivery O2 Flow Rate FiO2 03/15/17 08:01 36.6 84 16 106/60 93 Room Air 03/15/17 05:53 92 Room Air 03/15/17 04:27 98 Nasal Cannula 2.0 03/15/17 03:26 36.7 97 16 98/63 94 Nasal Cannula 4.0 03/15/17 00:17 Nasal Cannula 4.0 03/14/17 23:10 36.9 92 16 96/57 93 Nasal Cannula 4.0 03/14/17 22:10 36.8 96 16 90/54 94 Nasal Cannula 4.0 03/14/17 22:00 Nasal Cannula 4.0 03/14/17 21:10 36.9 100 16 100/66 94 Nasal Cannula 4.0 03/14/17 20:37 36.6 92 18 99/68 96 Nasal Cannula 4.0 Notes Mental Status: alert / awake / arousable, participated in evaluation Pt Amnestic to Procedure: Yes Nausea / Vomiting: adequately controlled Pain: adequately controlled Airway Patency, RR, SpO2: stable & adequate BP & HR: stable & adequate Hydration State: stable & adequate Anesthetic Complications: no major complications apparent
[2017-03-15] MEDS: POTASSIUM CHLORIDE INJ 10 MEQ in SODIUM CHLORIDE 0.9% 1000ML 1,000 ML IV SCH (08:31)
[2017-03-15] MEDS: DOCUSATE SODIUM 100 MG CAP PO SCH (08:31)
[2017-03-15] MEDS ORDERED: DULOXETINE (CYMBALTA) 30 MG CAP PO SCH (09:00)
[2017-03-15] MEDS ORDERED: ASPIRIN 81 MG ECTAB PO SCH (09:00)
[2017-03-15] MEDS ORDERED: LISINOPRIL 5 MG TAB PO SCH (09:00)
[2017-03-15] MEDS ORDERED: MULTIVITAMIN TAB PO SCH (09:00)
[2017-03-15] MEDS ORDERED: PANTOprazole SOD 40 MG TAB PO SCH (09:00)
[2017-03-15] MEDS ORDERED: ATORVASTATIN 10 MG TAB PO SCH (09:00)
--- NOTE | 2017-03-15 09:19 | PROGRESS NOTE ---
DATE: 03/15/2017 DATE: 03/15/2017. SUBJECTIVE: Liliya is postop day 1 from closure of bilateral lower extremity lacerations done by Dr. Mederos. She is doing pretty well this morning. Her pain is controlled. She says she really is not having much pain. No other complaints at this time. OBJECTIVE: GENERAL: She is alert, oriented in no distress. EXTREMITIES: Examination of bilateral lower extremities dressings are clean, dry and intact. She is able to dorsiflex, plantarflex and move her toes appropriately in bilateral lower extremities. Her sensation is intact to touch. ASSESSMENT: Postop day 1 from incision and drainage and closure of bilateral lower extremity lacerations. PLAN: Her pain is controlled at this point. She would like to just take aleve upon discharge when she goes home which would be fine to do. I told her she can take Tylenol as well. She should keep her dressings clean, dry and intact. Follow up with Dr. Hernández Tuesday of this week for dressing change and drain removal. She has been up and ambulating some she said. Physical therapy has been ordered as well. Will plan for likely discharge home today. GILBERT
--- NOTE | 2017-03-15 15:26 | DISCHARGE SUMMARY ---
DISCHARGE DIAGNOSIS: Laceration bilateral lower extremities. PROCEDURE: Irrigation, debridement and closure of bilateral lower extremity incisions on 03/14/[address] Isaiah Mederos. DISCHARGE INSTRUCTIONS: 1. Aspirin 81 mg daily. 2. Lipitor 10 mg daily. 3. Cymbalta 30 mg daily. 4. Glimepiride 2 mg daily. 5. Prinivil 5 mg daily. 6. Keep dressings clean and dry. 7. Follow up with Dr. Hernández on Tuesday for dressing change and drain removal. 8. Call the office of Dr. Mederos with any questions or concerns. HOSPITAL COURSE: Liliya is a 81-year-old female who fell through a porch and sustained lacerations on both of her lower extremities. The right laceration was quite extensive and felt it was best for closure in the operating room. On 03/14/2017 she was brought from the ER to the operating room. The operative extremity was identified and signed. She was given a general anesthetic. Both lower extremities were prepped and draped in sterile fashion. Time-out was done and the patient and operative extremity was properly identified. The right leg was done first. She went through bilateral incision closures in the operating room without any complications. Postoperatively, she was placed in a soft dressing, extubated, and taken to the postanesthesia care unit in stable condition. She was then discharged to general orthopedic floor. Her hospital course was uneventful. She received two rounds of antibiotics postoperatively. On postop day #1 she was having very little pain in her legs. She was able to be up and ambulating well with physical therapy. She was subsequently discharged to home with the above instructions.
[2017-04-08] MEDS ORDERED: CEPH500C2 PO (10:47)
[2017-05-23] MEDS ORDERED: CEPH500C2 PO (07:56)
== END 2017-03-15 14:20 | disposition home or self-care (01) ==
LOC: ENRESERVDT → ENRESERVTM → EDBD 11:42 → C.EDC 11:44 → C.MSW 17:26
PROVIDERS: ADMIT Orthopaedic Surgery; ATTEND Orthopaedic Surgery
DX: S81.812A Laceration without foreign body, left lower leg, initial encounter (principal); S81.811A Laceration without foreign body, right lower leg, initial encounter; W13.9XXA Fall from, out of or through building, not otherwise specified, initial encounter; Y92.018 Other place in single-family (private) house as the place of occurrence of the external cause; I10 Essential (primary) hypertension; E11.9 Type 2 diabetes mellitus without complications; Z88.5 Allergy status to narcotic agent; Z79.82 Long term (current) use of aspirin; Z79.899 Other long term (current) drug therapy; Z96.653 Presence of artificial knee joint, bilateral; Z98.890 Other specified postprocedural states; Z80.9 Family history of malignant neoplasm, unspecified; Z82.49 Family history of ischemic heart disease and other diseases of the circulatory system; Z90.89 Acquired absence of other organs

== ENCOUNTER → 2017-07-15 | Outpatient (CLI) | payer OTHER ==
[~2017-07-15] MED LIST changes: -ATOR10TA82 PO; +ATOR10TA88 PO; -CITA20TA9 PO; +CYM/30 PO
[2017-07-15 10:10] LABS: ESTIMATED AVERAGE GLUCOSE 137 mg/dl; HA1C FLAG Normal (Normal)
[2017-07-15 10:11] LABS: ALT/SGPT 22 U/L (12-78); AST/SGOT 22 U/L (15-37); BLOOD UREA NITROGEN 11 mg/dl (7-18); BUN/CREATININE RATIO 18.4 (10-20); CARBON DIOXIDE 26 mmol/L (21-32); CHLORIDE 108 mmol/L (98-107); CHOLESTEROL 92 mg/dl (0-200); CREATININE 0.58 mg/dl (0.60-1.20); GLUCOSE 114 mg/dl (70-99); POTASSIUM 3.8 mmol/L (3.5-5.1); SODIUM 142 mmol/L (136-145); TRIGLYCERIDES 95 mg/dl (0-150); VERY LOW DENSITY LIPOPROT CALC 19 mg/dl
[2017-07-15 10:25] LABS: ALB/GLOB RATIO 0.9 (0.9-2); ALKALINE PHOSPHATASE 65 U/L (45-117); CHOLESTEROL/HDL RATIO 1.9; HDL CHOLESTEROL 48 mg/dl; LDL CHOLESTEROL CALCULATED 25 mg/dl; THYROID STIMULATING HORMONE 0.874 uIu/ml (0.300-4.500)
== END | disposition home or self-care (01) ==
LOC: C.LAB 07:41
PROVIDERS: ATTEND Nurse Practitioner Family
DX: E11.9 Type 2 diabetes mellitus without complications (principal); F32.9 Major depressive disorder, single episode, unspecified; H91.90 Unspecified hearing loss, unspecified ear; E78.5 Hyperlipidemia, unspecified; D56.3 Thalassemia minor; I11.9 Hypertensive heart disease without heart failure; R06.09 Other forms of dyspnea; R01.1 Cardiac murmur, unspecified

== ENCOUNTER → 2018-01-09 | Outpatient (CLI) | payer OTHER ==
[~2018-01-09] MED LIST changes: +ATOR10TA82 PO; -ATOR10TA88 PO
[2018-01-09 09:33] LABS: BASO % 0.9 %; BASO ABS # 0.06 K/uL (0-0.2); EOS % 1.4 %; EOS ABS # 0.09 K/uL (0-0.5); HEMATOCRIT 45.2 % (37-47); HEMOGLOBIN 15.1 g/dL (12.0-16.0); IG# 0.01 K/uL (0.00-0.02); LYMPH % 22.8 %; LYMPH ABS # 1.46 K/uL (1.2-3.4); MEAN CELL VOLUME 87.3 fL (80-100); MEAN CORPUSCULAR HEMOGLOBIN 29.2 pg (25-34); MEAN CORPUSCULAR HGB CONC 33.4 g/dl (32-36); MEAN PLATELET VOLUME 11.6 fL (7.4-10.4); MONO % 7.8 %; NEUT % 66.9 %; NEUT ABS # 4.27 K/uL (1.4-6.5); PLATELET COUNT 189 K/uL (130-400); RED CELL DISTRIBUTION WIDTH CV 15.1 % (11.5-14.5); RED CELL DISTRIBUTION WIDTH SD 48.6 fL (36.4-46.3); WHITE BLOOD COUNT 6.39 K/uL (4.8-10.8)
[2018-01-09 09:56] LABS: ALBUMIN 3.3 gm/dl (3.4-5.0); ALT/SGPT 27 U/L (12-78); AST/SGOT 19 U/L (15-37); BLOOD UREA NITROGEN 15 mg/dl (7-18); CALCIUM 8.9 mg/dl (8.5-10.1); CARBON DIOXIDE 28 mmol/L (21-32); CHOLESTEROL 95 mg/dl (0-200); CREATININE 0.72 mg/dl (0.60-1.20); GLUCOSE 120 mg/dl (70-99); POTASSIUM 4.1 mmol/L (3.5-5.1); SODIUM 142 mmol/L (136-145)
[2018-01-09 10:06] LABS: ALKALINE PHOSPHATASE 65 U/L (45-117); LDL CHOLESTEROL CALCULATED 28 mg/dl; TOTAL PROTEIN 6.8 gm/dl (6.4-8.2)
[2018-01-09 10:11] LABS: HEMOGLOBIN A1C 6.2 % (4.5-5.6)
== END | disposition home or self-care (01) ==
LOC: C.LAB 08:26
PROVIDERS: ATTEND Nurse Practitioner Family
DX: E11.9 Type 2 diabetes mellitus without complications (principal); E78.5 Hyperlipidemia, unspecified; I11.9 Hypertensive heart disease without heart failure; D56.3 Thalassemia minor

== ENCOUNTER → 2018-02-01 | Outpatient (CLI) | payer OTHER ==
--- NOTE | 2018-02-01 10:39 | DIAGNOSTIC IMAGING REPORT ---
LEFT HAND 3 VIEWS HISTORY: Left hand pain. COMPARISON: None. FINDINGS: There is no fracture or dislocation. Soft tissues are unremarkable. The bones are osteopenic. 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 No radiopaque foreign bodies. 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 Deformity within the scaphoid bone may be due to to patient positioning. IMPRESSION: 1. No acute fracture or dislocation within the left hand. 2. Mild to moderate osteoarthritis as described above. 3. Scapholunate dissociation. There is also deformity at the scaphoid which may be due to patient positioning. However, if the patient is complaining of pain at this location then a dedicated left wrist radiograph is recommended. Electronically signed by: Don Redd M.D. 02/01/2018 10:38 AM Dictated Date/Time: 02/01/2018 10:35 AM
== END | disposition home or self-care (01) ==
LOC: C.RAD 09:48
PROVIDERS: ATTEND Nurse Practitioner Family
DX: M79.642 Pain in left hand (principal); M19.042 Primary osteoarthritis, left hand; S63.512A Sprain of carpal joint of left wrist, initial encounter; X58.XXXA Exposure to other specified factors, initial encounter

== ENCOUNTER 2021-08-19 14:54 | Inpatient (IN) ==
--- NOTE | 2021-08-19 17:48 | Emergency Department Note ---
Impression & Plan Hypoxia, Hypoglycemia, Weakness, Pneumonia, COVID-19, Elevated troponin ED Provider Note NAME: CHON PARNELL AGE: 86 SEX: F : 1935 ARRIVES VIA: Walk-In INFORMANT: [Patient][daughter] ED PROVIDER(S): [Ricardo Preston MD] CHIEF COMPLAINT: Illness HISTORY OF PRESENT ILLNESS: The patient is an 86-year-old female who is positive for COVID-19. She tested positive a week ago. Patient has had symptoms for about the exact same timeframe. She has been congested and coughing and a bit short of breath. She has a poor appetite. She has fallen twice although she was not injured. She is not eating well and her color was ashen today. Her is actually in the hospital in the [facility] wing. The cyanide case hardener from our hospital contacted the family today and advised that the patient get seen for evaluation as her was quite ill. The patient is currently staying with her son-in-law. She has been more agitated lately. There is concern for some dehydration. Of note, the patient is extremely hard of hearing. She had a very hard time answering questions. I was able to contact her daughter who was able to fill me in on the situation. The patient is not vaccinated for COVID-19. Given the confusion, no further history obtainable. REVIEW OF SYSTEMS: Unobtainable given the mental state. PMHx/PSHx: See Below SOCIAL HISTORY: See Below. PHYSICAL EXAM: GENERAL: Patient is in mild distress, anxious. Agitated. Very hard of hearing. HEENT: No acute trauma, normocephalic atraumatic, mucous membranes dry, no nasal congestion, no scleral icterus. NECK: No stridor, no adenopathy, no meningismus, trachea is midline. LUNGS: Clear to auscultation bilaterally, no wheeze, no rhonchi, breath sounds equal. HEART: Irregular rhythm, 2/6 systolic murmur, normal rate. ABDOMEN: Soft, nontender, bowel sounds positive, no hernias, no peritonitis. EXTREMITIES: No cyanosis or edema, full range of motion of all the joints without pain or difficulty, no signs for acute trauma. NEUROLOGIC: Agitated, seems slightly confused, no acute motor or sensory deficits, no focal weakness. No speech slur. SKIN: No rash, no jaundice, no diaphoresis. DIFFERENTIAL DIAGNOSIS: Reactive airway disease, electrolyte balance, anemia, pneumonia, pneumothorax, COPD, COVID-19, dehydration, CHF, infection, cardiac ischemia, pulmonary embolism, bronchitis, musculoskeletal, gastrointestinal, as well as other pathologies. EMERGENCY DEPARTMENT COURSE/PROCEDURES: ECG: Indication was weakness. The ECG shows a sinus rhythm with PACs. LVH is present. The rate is 97. There is a potential old anterior lateral infarct. There is potential inferior infarct. No concerning ST elevation. The QTc is 477. Compared to an ECG from 04 May 2019, there is no significant change. Continuous Cardiac Monitoring: An order was placed for continuous cardiac monitoring. The monitor shows a rate of 95 with sinus rhythm with PACs. Critical Care Note: I have personally spent 51 minutes of critical care time in the direct management of this patient. This includes bedside care, interpretation of diagnostic studies, and testing, discussion with consultants, patient, and family members, and other required patient management activities. This 51 minutes is in excess of all separately billable procedures. MEDICAL DECISION MAKING: There is no leukocytosis or concerning anemia. There is a normal platelet count. No coagulopathy. Potassium somewhat low at 3.2, no kidney failure. Glucose was quite low at 48. Lactic acid level is not elevated making sepsis less likely. No concerning liver enzyme elevation. Covid test returned positive. ECG shows a sinus rhythm with some PACs, no ST elevation. Cardiac enzyme testing x1 does show a slight elevation. This enzyme elevation could be consistent with cardiac injury or strain. Chest film shows bilateral pneumonia consistent with Covid pneumonia. Brain CT is currently pending. On exam, the patient seemed slightly confused. She was hypoxic without O2 supplementation. The patient's blood sugar was addressed. She was given 50 cc of D50 IV. Sugar was rechecked and was in the 140s. The patient did seem to get a bit less confused after the administration of the glucose although, it was still very difficult to talk with her as she was quite hard of hearing. She was given a turkey sandwich to try and keep the sugar from dropping a second time. She was given a 500 cc saline bolus, a DuoNeb and IV Decadron. She was ordered for IV potassium. The patient presents hypoxic. She is requiring O2 supplementation. She was hypoglycemic. She has been weak. She has fallen a few times. She has an elevated troponin. The patient requires a hospital stay. I suspect the Covid infection is the root cause of her difficulty. I did speak with the patient and cyanide case hardener. The on-call hospitalist was consulted. Past Med/Surg History Medical History Arthritis Back pain Choroidal nevus Diabetes FH: cholecystectomy Vertigo Surgical History H/O mastectomy H/O repair of rotator cuff History of cholecystectomy History of partial colectomy Hx of appendectomy Hx of total knee arthroplasty Previous back surgery Family History Mother Cancer Larynx cancer Alcohol abuse Father Myocardial infarction Alcohol abuse Denies family history of Ovarian cancer Prostate cancer Breast cancer Colorectal cancer Social History Smoking Status: Never smoker Second Hand Exposure: No; Hx Alcohol Use: No Hx Substance Use: No Preferred Language: Ukrainian Communication Ability: Impaired Visual Impairment: No Limitations Hearing Ability: Use of Hearing Aid 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 marital status: Current Living Situation: Spouse current occupational status: retired How many Children do You have: 3 Feels Safe at Home: Yes Childhood Exposure to Second-Hand Smoke: Yes caffeine: Yes during the past year weight has: remained stable Dental Care, Regularly: Yes Physical Activity Frequency: Does not Exercise Seatbelt Use: always Sunscreen Use: No Assistive Devices: Denture - Upper, Denture - Lower, Glasses and Hearing Aid - Bilateral Allergies Allergies Allergy/AdvReac Type Severity Reaction Status Date / Time adhesive Allergy Mild RASH Unverified 08/19/21 17:42 codeine Allergy Mild Unknown Unverified 08/19/21 17:42 meperidine AdvReac Unknown Unknown Unverified 08/19/21 17:42 morphine AdvReac Unknown Unknown Unverified 08/19/21 17:42 Home Meds Home Medications Medication Instructions Recorded Confirmed aspirin 81 mg tablet,delayed 81 mg PO DAILY 05/04/19 08/19/21 release (Aspirin Low Dose) blood-glucose meter (Silith.IOuch #1 ea 06/04/19 08/14/21 Verio Flex meter) lancets 33 gauge (Ethel Valdes #100 ea 06/04/19 08/14/21 Lancets) Previous Rx's Medication Instructions Recorded blood sugar diagnostic (Ethel #100 ea 07/25/20 Verio test strips) duloxetine 60 mg capsule,delayed 60 mg PO DAILY #90 cap 06/15/21 release lisinopril 5 mg tablet 5 mg PO DAILY #90 tab 07/13/21 bupropion HCl 100 mg tablet,12 hr 100 mg PO BID #180 ea 08/06/21 sustained-release (Wellbutrin SR) atorvastatin 10 mg tablet 10 mg PO HS #90 tab 08/12/21 glimepiride 2 mg tablet 2 mg PO DAILY #90 tab 08/12/21 Results & Data (ED) Vital Signs Vital Signs - 24 hr 08/19/21 15:05 08/19/21 17:46 08/19/21 17:47 Temperature 36.6 C Temperature Source Oral Pulse Rate 95 H 102 H Pulse Rate [Apical] 100 H Respiratory Rate 20 16 16 Respiratory Effort / Characteristics Non-Labored Spontaneous Respiratory Depth Normal Respiratory Pattern Regular Blood Pressure 112/71 Blood Pressure [Left Arm] 130/80 Blood Pressure Mean 84 Blood Pressure Mean [Left Arm] 96 Pulse Oximetry 92 91 90 Oxygen Delivery Method Room Air Nasal Cannula Nasal Cannula Oxygen Flow Rate 2 2 Sepsis Recent Fever Within 48 Hours No Sepsis New/Unexplained Change in Mental Status N/A Sepsis Action Taken by Nursing No Action Required 08/19/21 18:24 Temperature Temperature Source Pulse Rate Pulse Rate [Apical] 97 H Respiratory Rate 20 Respiratory Effort / Characteristics Spontaneous Respiratory Depth Respiratory Pattern Blood Pressure Blood Pressure [Left Arm] Blood Pressure Mean Blood Pressure Mean [Left Arm] Pulse Oximetry 96 Oxygen Delivery Method Nasal Cannula Oxygen Flow Rate 2 Sepsis Recent Fever Within 48 Hours Sepsis New/Unexplained Change in Mental Status Sepsis Action Taken by [facility] Medications Current Medication List: was personally reviewed by me Laboratory Data Attestation: I reviewed the patient's lab results. Result diagrams: 08/19/21 17:48 08/19/21 17:48 Lab Results 08/19/21 08/19/21 08/19/21 Range/Units 17:48 17:48 17:48 WBC 6.91 (4.8-10.8) K/uL RBC 5.67 H (4.2-5.4) M/uL Hgb 17.9 H (12.0-16.0) g/dL Hct 51.6 H (37-47) % MCV 91.0 (80-100) fL MCH 31.6 (25-34) pg MCHC 34.7 (32-36) g/dL RDW Std Deviation 43.2 (36.4-46.3) fL RDW Coeff of Vidhi 13.1 (11.5-14.5) % Plt Count 146 (130-400) K/uL MPV 12.0 H (7.4-10.4) fL Immature Gran % (Auto) 0.3 % Neut % (Auto) 77.6 % Lymph % (Auto) 13.0 % Gulf % (Auto) 8.8 % Eos % (Auto) 0.0 % Baso % (Auto) 0.3 % Neut # (Auto) 5.36 (1.4-6.5) K/uL Lymph # (Auto) 0.90 L (1.2-3.4) K/uL Gulf # (Auto) 0.61 H (0.11-0.59) K/uL Eos # (Auto) 0.00 (0-0.5) K/uL Baso # (Auto) 0.02 (0-0.2) K/uL Immature Gran # (Auto) 0.02 (0.00-0.02) K/uL PT 10.2 (9.0-12.0) Seconds INR 1.0 (0.9-1.1) APTT 32.8 H (21.0-31.0) Seconds PTT Ratio 1.2 Sodium 137 (136-145) mmol/L Potassium 3.2 L (3.5-5.1) mmol/L Chloride 103 (98-107) mmol/L Carbon Dioxide 24 (21-32) mmol/L Anion Gap 9.0 (3-11) BUN 17 (7-18) mg/dl Creatinine 0.79 (0.6-1.2) mg/dl Est Cr Clr Drug Dosing 46.3 ml/min Est GFR ( Amer) 79.7 ml/min Est GFR (Non-Af Amer) 68.7 ml/min BUN/Creatinine Ratio 21.6 H (10-20) Glucose 48 L* (70-99) mg/dl POC Glucose (70-99) mg/dl Lactate (0.4-2.0) mmol/L Calcium 9.0 (8.5-10.1) mg/dl Magnesium 2.2 (1.8-2.4) mg/dl Total Bilirubin 1.0 (0.2-1) mg/dl AST 43 H (15-37) U/L ALT 25 (12-78) U/L Alkaline Phosphatase 57 (45-117) U/L Troponin I 0.064 H* (0-0.045) ng/ml Total Protein 7.4 (6.4-8.2) gm/dl Albumin 2.9 L (3.4-5.0) gm/dl Globulin 4.5 H (2.5-4.0) gm/dl Albumin/Globulin Ratio 0.6 L (0.9-2) COVID-19 Eval Order SARS-CoV-2 (PCR) (Negative) 08/19/21 08/19/21 08/19/21 Range/Units 17:48 17:48 17:48 WBC (4.8-10.8) K/uL RBC (4.2-5.4) M/uL Hgb (12.0-16.0) g/dL Hct (37-47) % MCV (80-100) fL MCH (25-34) pg MCHC (32-36) g/dL RDW Std Deviation (36.4-46.3) fL RDW Coeff of Vidhi (11.5-14.5) % Plt Count (130-400) K/uL MPV (7.4-10.4) fL Immature Gran % (Auto) % Neut % (Auto) % Lymph % (Auto) % Gulf % (Auto) % Eos % (Auto) % Baso % (Auto) % Neut # (Auto) (1.4-6.5) K/uL Lymph # (Auto) (1.2-3.4) K/uL Gulf # (Auto) (0.11-0.59) K/uL Eos # (Auto) (0-0.5) K/uL Baso # (Auto) (0-0.2) K/uL Immature Gran # (Auto) (0.00-0.02) K/uL PT (9.0-12.0) Seconds INR (0.9-1.1) APTT (21.0-31.0) Seconds PTT Ratio Sodium (136-145) mmol/L Potassium (3.5-5.1) mmol/L Chloride (98-107) mmol/L Carbon Dioxide (21-32) mmol/L Anion Gap (3-11) BUN (7-18) mg/dl Creatinine (0.6-1.2) mg/dl Est Cr Clr Drug Dosing ml/min Est GFR ( Amer) ml/min Est GFR (Non-Af Amer) ml/min BUN/Creatinine Ratio (10-20) Glucose (70-99) mg/dl POC Glucose (70-99) mg/dl Lactate 2.0 (0.4-2.0) mmol/L Calcium (8.5-10.1) mg/dl Magnesium (1.8-2.4) mg/dl Total Bilirubin (0.2-1) mg/dl AST (15-37) U/L ALT (12-78) U/L Alkaline Phosphatase (45-117) U/L Troponin I (0-0.045) ng/ml Total Protein (6.4-8.2) gm/dl Albumin (3.4-5.0) gm/dl Globulin (2.5-4.0) gm/dl Albumin/Globulin Ratio (0.9-2) COVID-19 Eval Order Covid19 at [facility] SARS-CoV-2 (PCR) POSITIVE A* (Negative) 08/19/21 Range/Units 19:12 WBC (4.8-10.8) K/uL RBC (4.2-5.4) M/uL Hgb (12.0-16.0) g/dL Hct (37-47) % MCV (80-100) fL MCH (25-34) pg MCHC (32-36) g/dL RDW Std Deviation (36.4-46.3) fL RDW Coeff of Vidhi (11.5-14.5) % Plt Count (130-400) K/uL MPV (7.4-10.4) fL Immature Gran % (Auto) % Neut % (Auto) % Lymph % (Auto) % Gulf % (Auto) % Eos % (Auto) % Baso % (Auto) % Neut # (Auto) (1.4-6.5) K/uL Lymph # (Auto) (1.2-3.4) K/uL Gulf # (Auto) (0.11-0.59) K/uL Eos # (Auto) (0-0.5) K/uL Baso # (Auto) (0-0.2) K/uL Immature Gran # (Auto) (0.00-0.02) K/uL PT (9.0-12.0) Seconds INR (0.9-1.1) APTT (21.0-31.0) Seconds PTT Ratio Sodium (136-145) mmol/L Potassium (3.5-5.1) mmol/L Chloride (98-107) mmol/L Carbon Dioxide (21-32) mmol/L Anion Gap (3-11) BUN (7-18) mg/dl Creatinine (0.6-1.2) mg/dl Est Cr Clr Drug Dosing ml/min Est GFR ( Amer) ml/min Est GFR (Non-Af Amer) ml/min BUN/Creatinine Ratio (10-20) Glucose (70-99) mg/dl POC Glucose 147 H (70-99) mg/dl Lactate (0.4-2.0) mmol/L Calcium (8.5-10.1) mg/dl Magnesium (1.8-2.4) mg/dl Total Bilirubin (0.2-1) mg/dl AST (15-37) U/L ALT (12-78) U/L Alkaline Phosphatase (45-117) U/L Troponin I (0-0.045) ng/ml Total Protein (6.4-8.2) gm/dl Albumin (3.4-5.0) gm/dl Globulin (2.5-4.0) gm/dl Albumin/Globulin Ratio (0.9-2) COVID-19 Eval Order SARS-CoV-2 (PCR) (Negative) Administered Medications Discontinued Medications Albuterol (Albut/Ipratrop 3mg/0.5mg Neb 3 Ml Vial) 3 ml NEB NOW STA Stop: 08/19/21 18:09 Last Admin: 08/19/21 18:23 Dose: 3 ml Documented by: [id number] Dexamethasone Sodium Phosphate (DexamethasonePf 10 Mg/Ml Vial) 6 mg IV NOW ONE Stop: 08/19/21 18:09 Last Admin: 08/19/21 18:25 Dose: 6 mg Documented by: [id number] Dextrose (Dextrose 50% 50 Ml Syringe) 50 ml IV NOW ONE Stop: 08/19/21 18:33 Last Admin: 08/19/21 18:42 Dose: 50 ml Documented by: [id number] Sodium Chloride (Nss 1000ml) 500 mls @ 999 mls/hr IV .Q31M ONE Stop: 08/19/21 18:53 Last Admin: 08/19/21 18:45 Dose: 999 mls/hr Documented by: [id number] Imaging Data Radiologist's Impression: Chest X-Ray 08/19/21 17:33 XR chest 1V portable HISTORY: Shortness of breath. COMPARISON: Chest 03/14/2017. FINDINGS: No pneumothorax. No pleural effusions. There are low lung volumes. The cardiac silhouette remains mildly enlarged. There is patchy airspace opacities within the lung bases and right midlung zone. Large hiatus hernia remains unchanged. Surgical clips within the right axillary again noted. There is mild interstitial thickening, unchanged. No evidence for pulmonary edema. IMPRESSION: 1. Patchy airspace opacities within the lung bases and right midlung zone. This may represent a viral pneumonia. 2. Large hiatus hernia, unchanged. ACT 112: Negative or not required by law. Electronically signed by: Don Redd M.D. 08/19/2021 6:11 PM Discharge Plan Visit Data Chief Complaint: Illness Stated Complaint: COVID+ ED Provider: Ricardo Preston Discharge Problem: Hypoxia, Hypoglycemia, Weakness, Pneumonia, COVID-19, Elevated troponin Patient Disposition: Admitted As Inpatient Condition: Fair Forms Stand Alone Forms: [facility] Prescriptions Prescriptions: No Action (DME) OneTouch Verio test strips Strip See Dose Instructions .ROUTE .MEDSUPPLY Qty: 100 RF: 1 duloxetine 60 mg capsule,delayed release(DR/EC) 60 mg PO DAILY Qty: 90 RF: 3 lisinopril 5 mg tablet 5 mg PO DAILY Qty: 90 RF: 3 glimepiride 2 mg tablet 2 mg PO DAILY Qty: 90 RF: 1 atorvastatin 10 mg tablet 10 mg PO HS Qty: 90 RF: 1 bupropion HCl [Wellbutrin SR] 100 mg tablet sustained-release 12 hr 100 mg PO BID Qty: 180 RF: 1 (DME) lancets [OneTouch Delica Lancets] 33 gauge misc See Dose Instructions .ROUTE .MEDSUPPLY Qty: 100 RF: 0 (DME) blood-glucose meter [OneTouch Verio Flex meter] misc See Dose Instructions .ROUTE .MEDSUPPLY Qty: 1 RF: 0 aspirin [Aspirin Low Dose] 81 mg Tablet,Delayed Release (Dr/Ec) 81 mg PO DAILY RF: 0 Referrals Referrals: Adriano Prabhakar III, CRNP [Primary Care Provider] -
[2021-08-19 18:00] LABS: Basophils # (auto) 0.02 K/uL (0-0.2); Basophils % (auto) 0.3 %; Hematocrit (blood only) 51.6 % (37-47); Hemoglobin 17.9 g/dL (12.0-16.0); Immature Granulocytes # (auto) 0.02 K/uL (0.00-0.02); Immature Granulocytes % (auto) 0.3 %; Mean Corpuscular Hemoglobin 31.6 pg (25-34); Mean Corpuscular Hgb Conc 34.7 g/dL (32-36); Monocytes # (auto) 0.61 K/uL (0.11-0.59); Monocytes % (auto) 8.8 %; Neutrophils # (auto) 5.36 K/uL (1.4-6.5); Neutrophils % (auto) 77.6 %; Platelet Count 146 K/uL (130-400); RDW Coefficient of Variation 13.1 % (11.5-14.5); RDW Standard Deviation 43.2 fL (36.4-46.3); Red Blood Count 5.67 M/uL (4.2-5.4); White Blood Count 6.91 K/uL (4.8-10.8)
[2021-08-19] MEDS ORDERED: dexAMETHasone**PF** 10 MG/ML VIAL IV ONE (18:08)
[2021-08-19] MEDS ORDERED: ALBUT/IPRATROP 3MG/0.5MG NEB 3 ML VIAL NEB STA (18:08)
--- NOTE | 2021-08-19 18:12 | XRay Report ---
XR chest 1V portable HISTORY: Shortness of breath. COMPARISON: Chest 03/14/2017. FINDINGS: No pneumothorax. No pleural effusions. There are low lung volumes. The cardiac silhouette r emains mildly enlarged. There is patchy airspace opacities within the lung bases and right midlung zo ne. Large hiatus hernia remains unchanged. Surgical clips within the right axillary again noted. Ther e is mild interstitial thickening, unchanged. No evidence for pulmonary edema. IMPRESSION: 1. Patchy airspace opacities within the lung bases and right midlung zone. This may represent a viral pneumonia. 2. Large hiatus hernia, unchanged. ACT 112: Negative or not required by law. Electronically signed by: Don Redd M.D. 08/19/2021 6:11 PM
[2021-08-19 18:16] LABS: Partial Thromboplastin Ratio 1.2; Partial Thromboplastin Time 32.8 Seconds (21.0-31.0); Prothrombin Time 10.2 Seconds (9.0-12.0)
[2021-08-19] MEDS ORDERED: SODIUM CHLORIDE 0.9% 1000ML 500 ML IV ONE (18:23)
[2021-08-19 18:31] LABS: Albumin Globulin Ratio 0.6 (0.9-2); Albumin Level 2.9 gm/dl (3.4-5.0); BUN Creatinine Ratio 21.6 (10-20); Creatinine Clr Calc Pharmacy 46.3 ml/min; Est GFR (African American) 79.7 ml/min; Est GFR (Non-African American) 68.7 ml/min; Globulin 4.5 gm/dl (2.5-4.0); Magnesium 2.2 mg/dl (1.8-2.4); Potassium 3.2 mmol/L (3.5-5.1); Total Protein 7.4 gm/dl (6.4-8.2)
[2021-08-19] MEDS ORDERED: DEXTROSE 50% 50 ML SYRINGE IV ONE (18:32)
[2021-08-19 19:21] LABS: Troponin I 0.064 ng/ml (0-0.045)
[2021-08-19] MEDS ORDERED: POTASSIUM CHLORIDE / WTR 10 MEQ/100 ML PLCT IV ONE (19:33)
[2021-08-19] MEDS ORDERED: REMDESIVIR 200 MG in SODIUM CHLORIDE 0.9% 210 ML IV STA (20:32)
--- NOTE | 2021-08-19 20:40 | History & Physical Report ---
Date of Service August 19, 2021 Assessment & Plan (1) COVID-19: Plan: Mrs. Reyna is an 86 yo woman who tested positive for covid 19 seven days ago who presented with hypoxia. - CXR showing evidence of viral PNA - O2 sat < 88 on room air meets criteria for severe disease - SIRS criteria not met, patient not septic - ESR/CRP, ferritin, LDH, Dimer ordered - Dexamethasone 6mg IV daily - Remdesirivir ordered given symptom onset within last 10 days and severe dis ease - azithromycin - consider as candidate for monoclonal AB therapy in am with pulmonology - follow blood cultures - high dose lovenox - Mucinex - Duonebs - covid precautions (2) Elevated troponin: Plan: - trop at 0.065 - ekg without acute ST segment changes - trend serial trops - likely secondary to demand/supply mismatch - resting echo in am (3) Type 2 diabetes mellitus: Plan: - A1c 6.5, below goal, on 07/28/21 - home regimen consists of glimepiride 2mg daily - hold oral anti-glycemics; SSI ordered while inpatient - given associated risk of hypoglycemia in the elderly, consider discontinuing sulfonylurea upon discharge - continue high intensity statin, daily baby ASA, DONNELL - carb consistent diet (4) Hyperlipidemia: Plan: - continue ASA and lipitor (5) Elevated AST (SGOT): Plan: - level 43 - may be secondary to acute viral infection - repeat CMP in am (6) Hypokalemia: Plan: - level 3.2 on admission - NSS with KCl - trend BMP (7) Depression: Plan: - continue home dose wellbutrin and duloexetine Diet: Heart healthy, Carb consistent Dispo: Med/tele; PT/OT ordered DVT ppx: Lovenox high dose Code: DNR/DNI, I discussed with daughter Collete History of Present Illness Primary Care Provider: Adriano Prabhakar III, JIMI Mrs. Reyna is an 86 yo woman with a PMHx of type II diabetes who presented to the [facility] ED for evaluation of diarrhea, cough, agitation and weakness. Of note, her is currently admitted to the COVID unit here in the hospit al - both and developed symptoms last Tuesday. They both tested positive for covid-19 (7 days ago) via home test kits. A hospital embedded case manager called their house to check in on the family earlier today- Mrs. Reyna's son in law answered the telephone and informed the hospital telehealth case manager about Mrs. Reyna's symptoms. The hospital embedded case manager then suggested Mrs. Reyna be brought in for evaluation. Mrs. Reyna had not been vaccinated against covid 19. She is hard of hearing - her daughter states that she was supposed to have a cochlear implant this past fall, but ended up canceling the procedure. 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 Daughter Tiesha's number is [phone]. On arrival to the ED, she was afebrile, with a HR of 95 bpm, a systolic bp > 90; O2 sat was 88% on room air. She was placed on supplemental O2. Her CBC showed a normal WBC count with associated lymphopenia. Blood cultures were drawn. Her hemoglobin was elevated to 17.9. Her K was low at 3.2. Her AST was elevated to 43, ALT was normal. Kidney function was normal. Troponin was 0.064. COVID 19 positive. Her CXR showed findings consistent with a viral PNA along with a large hiatal hernia. A head CT was ordered. She was given an albuterol nebulizer, 6mg IV dexamethoasone, and a liter of NSS with Kcl. Allergies Allergy/AdvReac Type Severity Reaction Status Date / Time adhesive Allergy Mild RASH Unverified 08/19/21 17:42 codeine Allergy Mild Unknown Unverified 08/19/21 17:42 meperidine AdvReac Unknown Unknown Unverified 08/19/21 17:42 morphine AdvReac Unknown Unknown Unverified 08/19/21 17:42 Home Medications Medication Instructions Recorded Confirmed Type aspirin 81 mg tablet,delayed 81 mg PO DAILY 05/04/19 08/19/21 History release (Aspirin Low Dose) blood-glucose meter (OneTouch #1 ea 06/04/19 08/14/21 History Verio Flex meter) lancets 33 gauge (OneTouch Delica #100 ea 06/04/19 08/14/21 History Lancets) blood sugar diagnostic (OneTouch #100 ea 07/25/20 08/14/21 Rx Verio test strips) duloxetine 60 mg capsule,delayed 60 mg PO DAILY #90 cap 06/15/21 08/19/21 Rx release lisinopril 5 mg tablet 5 mg PO DAILY #90 tab 07/13/21 08/19/21 Rx bupropion HCl 100 mg tablet,12 hr 100 mg PO BID #180 ea 08/06/21 08/19/21 Rx sustained-release (Wellbutrin SR) atorvastatin 10 mg tablet 10 mg PO HS #90 tab 08/12/21 08/19/21 Rx glimepiride 2 mg tablet 2 mg PO DAILY #90 tab 08/12/21 08/19/21 Rx Past Med/Surg History Medical History Arthritis Back pain Choroidal nevus Diabetes FH: cholecystectomy Vertigo Surgical History H/O mastectomy H/O repair of rotator cuff History of cholecystectomy History of partial colectomy Hx of appendectomy Hx of total knee arthroplasty Previous back surgery Family History Mother Cancer Larynx cancer Alcohol abuse Father Myocardial infarction Alcohol abuse Denies family history of Ovarian cancer Prostate cancer Breast cancer Colorectal cancer Social History Smoking Status: Never smoker Second Hand Exposure: No; Hx Alcohol Use: No Hx Substance Use: No Preferred Language: Khmer Communication Ability: Effective Visual Impairment: No Limitations Hearing Ability: Use of Hearing Aid Data Analyst Report Writer Required: No Beliefs That Will Affect Care: None marital status: Current Living Situation: Spouse Current Living Situation Comment: lives with Cameron current occupational status: retired How many Children do You have: 3 Feels Safe at Home: Yes Safety Concerns: Feels Safe At This Time Childhood Exposure to Second-Hand Smoke: Yes caffeine: Yes during the past year weight has: remained stable Dental Care, Regularly: Yes Physical Activity Frequency: Does not Exercise Seatbelt Use: always Sunscreen Use: No Assistive Devices: Glasses, Hearing Aid - Right, Oxygen - Continuous and Walker Review of Systems Review of Systems: All systems reviewed & are unremarkable except as noted in HPI & below Physical Exam Constitutional: WD/WN, vitals as above cooperative; no acute distress Eyes: + anicteric sclerae ENMT: external ear and nose normal, oropharynx normal Ears: + hearing impairment Neck: trachea midline Respiratory: normal respiratory effort; no respiratory distress, no labored breathing and no audible wheezes Auscultation: + crackles and + rhonchi; no wheezes Cardiovascular: Rate/Rhythm: regular rate and regular rhythm Heart Sounds: normal S1, normal S2 and + murmur (systolic) Extremities: no pedal edema Gastrointestinal (Abdomen): normal bowel sounds, soft, nontender, no hepatosplenomegaly Musculoskeletal: Head/Neck/Chest: normocephalic and head atraumatic Skin: no rashes, warm and dry Neurologic: moves all extremities Results & Data Results & Data ([facility]) Vital Signs (Past 12 Hours) Vital Signs Temp Pulse Pulse Resp BP BP Pulse Ox 08/19/21 18:24 97 H 20 96 08/19/21 17:47 100 H 16 130/80 90 08/19/21 17:46 102 H 16 91 08/19/21 15:05 36.6 C 95 H 20 112/71 92 Supervising Physician Co-Signing Physician Notes Attending addendum: I have physically seen this patient, have supervised the medical residents activities, and agree with the H&P unless as otherwise noted. Assessment and Plan: COVID-19 pneumonia with hypoxia, 88% on room air- Dexamethasone 6 mg IV daily Remdesivir IV per protocol Azithromycin 500 mg IV daily Guaifenesin extended release 1200 mg p.o. twice daily Duonebs every 4 hours while awake and every 2 hours when necessary. Follow sputum culture and Gram stain Remaining orders and notations as noted Resident Activity Tracking Resident Involvement: Resident Care Provided Care Provided: Adult Hospital Medicine (1) Type 2 diabetes mellitus Diabetes mellitus complication status: without complication Diabetes mellitus care home insulin use: without terminal make up operator use Qualified Code(s): E11.9 - Type 2 diabetes mellitus without complications (2) Depression Active/Remission status: currently active Depression Type: major depressive disorder Major depression episode severity: mild Major depression recurrence: recurrent Qualified Code(s): F33.0 - Major depressive disorder, recurrent, mild (3) Hyperlipidemia Hyperlipidemia type: mixed hyperlipidemia Qualified Code(s): E78.2 - Mixed hyperlipidemia
[2021-08-19] MEDS ORDERED: ACETAMINOPHEN 325 MG TAB PO PRN (22:42)
[2021-08-19] MEDS ORDERED: GLUCAGON FOR INJ 1 MG VIAL SQ PRN (22:42)
[2021-08-19] MEDS ORDERED: POLYETHYLENE (MIRALAX) 17 GM PACK PO PRN (22:42)
[2021-08-19] MEDS ORDERED: DEXTROSE 50% 50 ML SYRINGE IV PRN (22:42)
[2021-08-19] MEDS ORDERED: GLUCOSE 10 TABS/TUBE PO PRN (22:42)
[2021-08-19] MEDS ORDERED: CARBOHYDRATES FOR HYPOGLYCEMIA PO PRN (22:42)
[2021-08-19] MEDS ORDERED: ONDANSETRON INJ 2 MG/ML 2 ML VIAL IV PRN (22:42)
[2021-08-19] MEDS ORDERED: AZITHROMYCIN 250 MG TAB PO ONE (22:42)
[2021-08-19] MEDS ORDERED: GLUCOSE 40% GEL 15 GM TUBE PO PRN (22:42)
[2021-08-19] MEDS: ALBUT/IPRATROP 3MG/0.5MG NEB 3 ML VIAL NEB SCH (23:58)
[2021-08-20] MEDS: ENOXAPARIN INJ 40 MG/0.4 ML SYR SQ SCH ×3 (01:01→22:27)
[2021-08-20] MEDS: ATORVASTATIN 10 MG TAB PO SCH ×2 (01:01→20:09)
[2021-08-20] MEDS: buPROPion SR 100 MG TABCR PO SCH ×3 (01:02→20:10)
[2021-08-20] MEDS: guaiFENesin 600 MG TABCR PO SCH ×3 (01:03→20:11)
[2021-08-20] MEDS: SODIUM CHLORIDE 0.9% 10ML FLUSH IV SCH ×2 (01:06→22:28)
[2021-08-20 01:44] LABS: C Reactive Protein 2.45 mg/dl (0-0.29); Ferritin 645.6 ng/ml (8-388)
[2021-08-20] MEDS: ALBUT/IPRATROP 3MG/0.5MG NEB 3 ML VIAL NEB SCH ×2 (03:20→07:51)
[2021-08-20 08:09] LABS: Basophils # (auto) 0.01 K/uL (0-0.2); Basophils % (auto) 0.2 %; Hemoglobin 16.4 g/dL (12.0-16.0); Immature Granulocytes # (auto) 0.01 K/uL (0.00-0.02); Immature Granulocytes % (auto) 0.2 %; Lymphocytes # (auto) 0.49 K/uL (1.2-3.4); Lymphocytes % (auto) 12.1 %; Mean Corpuscular Hemoglobin 31.2 pg (25-34); Mean Corpuscular Hgb Conc 34.9 g/dL (32-36); Mean Corpuscular Volume 89.5 fL (80-100); Mean Platelet Volume 11.8 fL (7.4-10.4); Monocytes % (auto) 7.4 %; Neutrophils # (auto) 3.23 K/uL (1.4-6.5); Neutrophils % (auto) 80.1 %; Platelet Count 138 K/uL (130-400); RDW Standard Deviation 42.8 fL (36.4-46.3); Red Blood Count 5.25 M/uL (4.2-5.4); White Blood Count 4.04 K/uL (4.8-10.8)
[2021-08-20 08:21] LABS: D Dimer 560 ug/L FEU (0-500)
[2021-08-20 08:40] LABS: Albumin Globulin Ratio 0.5 (0.9-2); Albumin Level 2.2 gm/dl (3.4-5.0); BUN Creatinine Ratio 24.8 (10-20); Bilirubin,Total 0.7 mg/dl (0.2-1); Calcium 8.7 mg/dl (8.5-10.1); Creatinine Clr Calc Pharmacy 47.2 ml/min; Est GFR (African American) 80.9 ml/min; Est GFR (Non-African American) 69.8 ml/min; Globulin 4.2 gm/dl (2.5-4.0); Potassium 4.2 mmol/L (3.5-5.1); Total Protein 6.4 gm/dl (6.4-8.2); Troponin I 0.063 ng/ml (0-0.045)
[2021-08-20] MEDS ORDERED: ALBUT/IPRATROP 3MG/0.5MG NEB 3 ML VIAL NEB PRN (09:42)
[2021-08-20] MEDS: AZITHROMYCIN 250 MG TAB PO SCH (09:43)
[2021-08-20] MEDS: lisinopril 5 MG TAB PO SCH (09:43)
[2021-08-20] MEDS: ASPIRIN 81 MG ECTAB PO SCH (09:43)
[2021-08-20] MEDS: DULoxetine HCL 60 MG CAP PO SCH (09:43)
[2021-08-20] MEDS: dexAMETHasone 6 MG in SYRINGE 0 ML IV SCH (09:44)
[2021-08-20] MEDS: INSULIN ASPART 100 UNITS/ML 3 ML PEN SC SCH ×4 (10:35→20:18)
--- NOTE | 2021-08-20 12:44 | Hospitalist Progress Note ---
Date of Service August 20, 2021 Assessment & Plan (1) COVID-19: Plan: Tested positive ~08/12/2021. - Continue dexamethasone 6 mg IV daily (End date: 08/28/2021) - Continue remdesivir - Presently needing ~2L NC (2) Elevated troponin: Plan: Troponin steady at 0.06. No chest pain or EKG changes. - No acute needs (3) Type 2 diabetes mellitus: Plan: A1c was 6.5% this month. - Sliding scale insulin - Monitor for increased needs while in steroids (4) Depression: Plan: - Continue bupropion & duloxetine (5) Hypertensive heart disease: Plan: BP today is 115/60. - Continue home lisinopril (6) Hyperlipidemia: Plan: - Continue statin (7) DVT prophylaxis: Plan: Lovenox 40 mg SQ daily Admission and Anticipated Discharge Date Admission Date: August 19, 2021 Subjective Doing well. Very hard of hearing. Reports no fevers/chills, chest pain, shortness of breath, abdominal pain, nausea, or vomiting. Physical Exam Constitutional: WD/WN, vitals as above Eyes: EOM intact bilaterally; no conjunctival abnormality ENMT: external ear and nose normal, oropharynx normal Neck: trachea midline, no thyromegaly normal visual inspection Respiratory: normal respiratory effort, lungs clear to auscultation no respiratory distress Cardiovascular: RRR, no murmur, no edema Gastrointestinal (Abdomen): Inspection/Auscultation: abdomen normal to inspection; abdomen not distended Musculoskeletal: no cyanosis or clubbing, extremities motor strength 5/5 Skin: no rashes, warm and dry Neurologic: moves all extremities and awake Psychiatric: Orientation: alert, oriented to person and cooperative Results & Data Results [facility] Data ([facility]) Vital Signs (Past 12 Hours) Vital Signs Temp Pulse Pulse Resp BP Pulse Ox 08/20/21 11:51 36.5 C 80 18 114/62 91 08/20/21 10:14 95 H 131/80 92 08/20/21 07:52 74 20 92 08/20/21 07:27 36.5 C 86 18 120/76 91 08/20/21 05:26 36.6 C 65 18 100/65 91 08/20/21 03:20 75 22 95 PG Care Time/CCT Total # of Minutes Spent Total Time Spent with Patient: Total time spent is greater than 50% in coordination of care (as documented) at patient's floor/unit and/or counseling patient: Coding Level of Care Code 85127 Subseq Hosp Care Lvl 3 Diagnoses COVID-19 U07.1 Elevated troponin R77.8 Type 2 diabetes mellitus E11.9 Diabetes mellitus residential insulin use: without residential use Diabetes mellitus complication status: without complication Depression F33.0 Depression Type: major depressive disorder Major depression recurrence: recurrent Active/Remission status: currently active Major depression episode severity: mild DVT prophylaxis Z29.9 Hypertensive heart disease I11.9 Heart failure presence: without heart failure Hyperlipidemia E78.2 Hyperlipidemia type: mixed hyperlipidemia (1) Type 2 diabetes mellitus Diabetes mellitus terminal worker insulin use: without terminal worker use Diabetes mellitus complication status: without complication Qualified Code(s): E11.9 - Type 2 diabetes mellitus without complications (2) Depression Depression Type: major depressive disorder Major depression recurrence: recurrent Active/Remission status: currently active Major depression episode severity: mild Qualified Code(s): F33.0 - Major depressive disorder, recurrent, mild (3) Hypertensive heart disease Heart failure presence: without heart failure Qualified Code(s): I11.9 - Hypertensive heart disease without heart failure (4) Hyperlipidemia Hyperlipidemia type: mixed hyperlipidemia Qualified Code(s): E78.2 - Mixed hyperlipidemia
[2021-08-20] MEDS: REMDESIVIR 100 MG in SODIUM CHLORIDE 0.9% 230 ML IV SCH (20:08)
--- NOTE | 2021-08-21 05:52 | Electrocardiogram Report ---
Test Reason : Blood Pressure : / mmHG Vent. Rate : 097 BPM Atrial Rate : 097 BPM P-R Int : 198 ms QRS Dur : 114 ms QT Int : 376 ms P-R-T Axes : 040 -63 078 degrees QTc Int : 477 ms Sinus rhythm with Premature supraventricular complexes Left axis deviation Left ventricular hypertrophy with repolarization abnormality Inferior infarct (cited on or before 14-MAR-2017) Anterolateral infarct (cited on or before 17-AUG-2015) Abnormal ECG When compared with ECG of 04-MAY-2019 11:24, Vent. rate has increased BY 33 BPM Confirmed by Aldo Lewis ([id number]) on 08/21/2021 5:51:27 AM Referred By: REFERRED SELF Confirmed By:Aldo Lewis
--- NOTE | 2021-08-21 06:23 | Billing Data ---
Date of Service August 21, 2021 Coding Level of Care Code 11942 Initial Inpt Care Lvl 3
[2021-08-21 06:51] LABS: Hematocrit (blood only) 45.9 % (37-47); Hemoglobin 15.8 g/dL (12.0-16.0); Mean Corpuscular Hemoglobin 31.1 pg (25-34); Mean Corpuscular Hgb Conc 34.4 g/dL (32-36); Mean Corpuscular Volume 90.4 fL (80-100); Mean Platelet Volume 11.7 fL (7.4-10.4); Platelet Count 164 K/uL (130-400); RDW Standard Deviation 42.9 fL (36.4-46.3); Red Blood Count 5.08 M/uL (4.2-5.4); White Blood Count 6.93 K/uL (4.8-10.8)
[2021-08-21 07:20] LABS: BUN Creatinine Ratio 39.4 (10-20); Calcium 8.8 mg/dl (8.5-10.1); Creatinine Clr Calc Pharmacy 46.4 ml/min; Est GFR (African American) 78.5 ml/min; Est GFR (Non-African American) 67.7 ml/min; Magnesium 2.5 mg/dl (1.8-2.4); Potassium 3.8 mmol/L (3.5-5.1)
[2021-08-21] MEDS: DULoxetine HCL 60 MG CAP PO SCH (08:25)
[2021-08-21] MEDS: ASPIRIN 81 MG ECTAB PO SCH (08:25)
[2021-08-21] MEDS: AZITHROMYCIN 250 MG TAB PO SCH (08:25)
[2021-08-21] MEDS: lisinopril 5 MG TAB PO SCH (08:25)
[2021-08-21] MEDS: guaiFENesin 600 MG TABCR PO SCH ×2 (08:26→20:31)
[2021-08-21] MEDS: buPROPion SR 100 MG TABCR PO SCH ×2 (08:26→20:31)
[2021-08-21] MEDS: dexAMETHasone 6 MG in SYRINGE 0 ML IV SCH (08:36)
[2021-08-21] MEDS: INSULIN ASPART 100 UNITS/ML 3 ML PEN SC SCH ×4 (09:14→21:19)
[2021-08-21] MEDS: ENOXAPARIN INJ 40 MG/0.4 ML SYR SQ SCH ×2 (12:43→20:33)
--- NOTE | 2021-08-21 13:20 | Hospitalist Progress Note ---
Date of Service August 21, 2021 Assessment & Plan (1) COVID-19: Plan: Tested positive ~08/12/2021. Pneumonia due to COVID19. - Continue dexamethasone 6 mg IV daily (End date: 08/28/2021) - Continue remdesivir - Presently needing ~2L NC. Stable from yesterday. (2) Elevated troponin: Plan: Troponin steady at 0.06. No chest pain or EKG changes. - No acute needs (3) Type 2 diabetes mellitus: Plan: A1c was 6.5% this month. - Sliding scale insulin - Monitor for increased needs while in steroids -> Presently 90 - 160. (4) Depression: Plan: - Continue bupropion & duloxetine (5) Hypertensive heart disease: Plan: BP today is 115/70. - Continue home lisinopril (6) Hyperlipidemia: Plan: - Continue statin (7) DVT prophylaxis: Plan: Lovenox 40 mg SQ daily Admission and Anticipated Discharge Date Admission Date: August 19, 2021 Subjective Doing well. Very hard of hearing. Denies shortness of breath or cough. Appetite a bit lower. Reports no fevers/chills, chest pain, shortness of breath, abdominal pain, nausea, or vomiting. Physical Exam Constitutional: WD/WN, vitals as above Eyes: EOM intact bilaterally; no conjunctival abnormality ENMT: external ear and nose normal, oropharynx normal Neck: trachea midline, no thyromegaly normal visual inspection Respiratory: normal respiratory effort, lungs clear to auscultation no respiratory distress Cardiovascular: RRR, no murmur, no edema Gastrointestinal (Abdomen): Inspection/Auscultation: abdomen normal to inspection; abdomen not distended Musculoskeletal: no cyanosis or clubbing, extremities motor strength 5/5 Skin: no rashes, warm and dry Neurologic: moves all extremities and awake Psychiatric: Orientation: alert, oriented to person and cooperative Results & Data Results & Data ([facility]) Vital Signs (Past 12 Hours) Vital Signs Temp Pulse Pulse Resp BP Pulse Ox 08/21/21 11:55 36.6 C 83 17 114/73 92 08/21/21 07:41 36.6 C 74 20 121/74 94 08/21/21 07:39 70 08/21/21 04:05 36.7 C 65 16 119/63 94 PG Care Time/CCT Total # of Minutes Spent Total Time Spent with Patient: Total time spent is greater than 50% in coordination of care (as documented) at patient's floor/unit and/or counseling patient: Coding Level of Care Code 67148 Subseq Hosp Care Lvl 3 Diagnoses COVID-19 U07.1 Elevated troponin R77.8 Type 2 diabetes mellitus E11.9 Diabetes mellitus jail insulin use: without intermediate card tender use Diabetes mellitus complication status: without complication Depression F33.0 Depression Type: major depressive disorder Major depression recurrence: recurrent Active/Remission status: currently active Major depression episode severity: mild Hypertensive heart disease I11.9 Heart failure presence: without heart failure Hyperlipidemia E78.2 Hyperlipidemia type: mixed hyperlipidemia DVT prophylaxis Z29.9 (1) Type 2 diabetes mellitus Diabetes mellitus intermediate card tender insulin use: without jail use Diabetes mellitus complication status: without complication Qualified Code(s): E11.9 - Type 2 diabetes mellitus without complications (2) Depression Depression Type: major depressive disorder Major depression recurrence: recurrent Active/Remission status: currently active Major depression episode severity: mild Qualified Code(s): F33.0 - Major depressive disorder, recurrent, mild (3) Hypertensive heart disease Heart failure presence: without heart failure Qualified Code(s): I11.9 - Hypertensive heart disease without heart failure (4) Hyperlipidemia Hyperlipidemia type: mixed hyperlipidemia Qualified Code(s): E78.2 - Mixed hyperlipidemia
[2021-08-21] MEDS: REMDESIVIR 100 MG in SODIUM CHLORIDE 0.9% 230 ML IV SCH (20:26)
[2021-08-21] MEDS: ATORVASTATIN 10 MG TAB PO SCH (20:31)
[2021-08-21] MEDS: SODIUM CHLORIDE 0.9% 10ML FLUSH IV SCH (22:19)
--- NOTE | 2021-08-22 00:02 | Communication Note ---
Date of Service: August 22, 2021 Called regarding patient having BRBPR with BM this evening. Patient currently on Lovenox BID for COVID 19 DVT ppx. Will hold, as well as holding aspirin. Protonix and AM Hgb ordered. Patient's vitals stable, still requiring supplemental O2 for COVID 19 pneumonia. Resident Activity Tracking Resident Involvement: Resident Care Provided Care Provided: Adult Hospital Medicine
[2021-08-22 06:56] LABS: Basophils # (auto) 0.01 K/uL (0-0.2); Basophils % (auto) 0.1 %; Hematocrit (blood only) 43.3 % (37-47); Hemoglobin 14.8 g/dL (12.0-16.0); Immature Granulocytes # (auto) 0.03 K/uL (0.00-0.02); Immature Granulocytes % (auto) 0.4 %; Lymphocytes # (auto) 0.98 K/uL (1.2-3.4); Lymphocytes % (auto) 12.5 %; Mean Corpuscular Hgb Conc 34.2 g/dL (32-36); Mean Corpuscular Volume 90.8 fL (80-100); Mean Platelet Volume 11.8 fL (7.4-10.4); Monocytes % (auto) 11.5 %; Neutrophils # (auto) 5.93 K/uL (1.4-6.5); Neutrophils % (auto) 75.5 %; Platelet Count 181 K/uL (130-400); RDW Standard Deviation 43.3 fL (36.4-46.3); Red Blood Count 4.77 M/uL (4.2-5.4); White Blood Count 7.85 K/uL (4.8-10.8)
[2021-08-22 07:25] LABS: Est GFR (Non-African American) 81.1 ml/min
[2021-08-22] MEDS: buPROPion SR 100 MG TABCR PO SCH ×2 (08:06→20:36)
[2021-08-22] MEDS: guaiFENesin 600 MG TABCR PO SCH ×2 (08:06→20:36)
[2021-08-22] MEDS: PANTOprazole 40 MG TAB PO SCH (08:06)
[2021-08-22] MEDS: DULoxetine HCL 60 MG CAP PO SCH (08:07)
[2021-08-22] MEDS: lisinopril 5 MG TAB PO SCH (08:07)
[2021-08-22] MEDS: AZITHROMYCIN 250 MG TAB PO SCH (08:07)
[2021-08-22] MEDS: INSULIN ASPART 100 UNITS/ML 3 ML PEN SC SCH ×4 (09:33→21:04)
[2021-08-22] MEDS: dexAMETHasone 6 MG in SYRINGE 0 ML IV SCH (09:50)
--- NOTE | 2021-08-22 13:57 | Hospitalist Progress Note ---
Date of Service August 22, 2021 Assessment & Plan (1) COVID-19: Plan: Tested positive ~08/12/2021. Pneumonia due to COVID19. - Continue dexamethasone 6 mg IV daily (End date: 08/28/2021) - Continue remdesivir - Presently needing ~2L - 3L NC. Stable from yesterday. Encourage good PT/OT to prevent atelectasis and getting weaker. (2) Elevated troponin: Plan: Troponin steady at 0.06. No chest pain or EKG changes. - No acute needs (3) Type 2 diabetes mellitus: Plan: A1c was 6.5% this month. - Sliding scale insulin - Monitor for increased needs while in steroids -> Presently 90 - 180. (4) Depression: Plan: - Continue bupropion & duloxetine (5) Hypertensive heart disease: Plan: BP today is 125/75. - Continue home lisinopril (6) Hyperlipidemia: Plan: - Continue statin (7) DVT prophylaxis: Plan: Lovenox 40 mg SQ daily Admission and Anticipated Discharge Date Admission Date: August 19, 2021 Subjective Stable today. Communicated via writing due to hearing loss. No shortness of breath. Some cough. No loss of appetite. No fevers/chills. Reports no fevers/chills, chest pain, shortness of breath, abdominal pain, nausea, or vomiting. Physical Exam Constitutional: WD/WN, vitals as above Eyes: EOM intact bilaterally; no conjunctival abnormality ENMT: external ear and nose normal, oropharynx normal Neck: trachea midline, no thyromegaly normal visual inspection Respiratory: normal respiratory effort, lungs clear to auscultation no respiratory distress Cardiovascular: RRR, no murmur, no edema Gastrointestinal (Abdomen): Inspection/Auscultation: abdomen normal to inspection; abdomen not distended Musculoskeletal: no cyanosis or clubbing, extremities motor strength 5/5 Skin: no rashes, warm and dry Neurologic: moves all extremities and awake Psychiatric: Orientation: alert, oriented to person and cooperative Results & Data Results & Data ([facility]) Vital Signs (Past 12 Hours) Vital Signs Temp Pulse Pulse Resp BP Pulse Ox 08/22/21 12:00 36.5 C 88 18 124/74 91 08/22/21 07:59 36.5 C 78 18 117/54 L 92 10/30/21 07:03 73 08/22/21 03:37 36.8 C 83 18 120/64 95 PG Care Time/CCT Total # of Minutes Spent Total Time Spent with Patient: Total time spent is greater than 50% in coordination of care (as documented) at patient's floor/unit and/or counseling patient: Coding Level of Care Code 81045 Subseq Hosp Care Lvl 2 Diagnoses COVID-19 U07.1 Elevated troponin R77.8 Type 2 diabetes mellitus E11.9 Diabetes mellitus buttermaker continuous churn insulin use: without buttermaker continuous churn use Diabetes mellitus complication status: without complication Depression F33.0 Depression Type: major depressive disorder Major depression recurrence: recurrent Active/Remission status: currently active Major depression episode severity: mild Hypertensive heart disease I11.9 Heart failure presence: without heart failure Hyperlipidemia E78.2 Hyperlipidemia type: mixed hyperlipidemia DVT prophylaxis Z29.9 (1) Type 2 diabetes mellitus Diabetes mellitus senior care insulin use: without buttermaker continuous churn use Diabetes mellitus complication status: without complication Qualified Code(s): E11.9 - Type 2 diabetes mellitus without complications (2) Depression Depression Type: major depressive disorder Major depression recurrence: recurrent Active/Remission status: currently active Major depression episode severity: mild Qualified Code(s): F33.0 - Major depressive disorder, recurrent, mild (3) Hypertensive heart disease Heart failure presence: without heart failure Qualified Code(s): I11.9 - Hypertensive heart disease without heart failure (4) Hyperlipidemia Hyperlipidemia type: mixed hyperlipidemia Qualified Code(s): E78.2 - Mixed hyperlipidemia
[2021-08-22] MEDS: REMDESIVIR 100 MG in SODIUM CHLORIDE 0.9% 230 ML IV SCH (20:31)
[2021-08-22] MEDS: ATORVASTATIN 10 MG TAB PO SCH (20:36)
[2021-08-22] MEDS: SODIUM CHLORIDE 0.9% 10ML FLUSH IV SCH (21:49)
[2021-08-22] MEDS: ENOXAPARIN INJ 40 MG/0.4 ML SYR SQ SCH (22:16)
[2021-08-23] MEDS: guaiFENesin 600 MG TABCR PO SCH ×2 (08:10→20:36)
[2021-08-23] MEDS: lisinopril 5 MG TAB PO SCH (08:11)
[2021-08-23] MEDS: AZITHROMYCIN 250 MG TAB PO SCH (08:11)
[2021-08-23] MEDS: PANTOprazole 40 MG TAB PO SCH (08:11)
[2021-08-23] MEDS: DULoxetine HCL 60 MG CAP PO SCH (08:12)
[2021-08-23] MEDS: buPROPion SR 100 MG TABCR PO SCH ×2 (08:13→20:36)
[2021-08-23] MEDS: dexAMETHasone 6 MG in SYRINGE 0 ML IV SCH (08:15)
[2021-08-23] MEDS: INSULIN ASPART 100 UNITS/ML 3 ML PEN SC SCH ×4 (08:47→21:18)
[2021-08-23] MEDS ORDERED: LORazepam 0.5 MG TAB SL STA (10:45)
[2021-08-23] MEDS: ENOXAPARIN INJ 40 MG/0.4 ML SYR SQ SCH (11:02)
--- NOTE | 2021-08-23 14:49 | Hospitalist Progress Note ---
Date of Service August 23, 2021 Assessment & Plan (1) COVID-19: Plan: Tested positive ~08/12/2021. Pneumonia due to COVID19. - Continue dexamethasone 6 mg IV daily (End date: 08/28/2021) - Continue remdesivir - Presently needing ~2L - 3L NC. Stable from yesterday. Encourage good PT/OT to prevent atelectasis and getting weaker. Stable today. Likely discharge to daughter's house in 1-2 days. Note: Her here on 08/23 of Covid. Daughters have safety concerns for home as she has previously stated she has pills hidden away in her house. - PT recommend / care. OT not evaluated yet. (2) Elevated troponin: Plan: Troponin steady at 0.06. No chest pain or EKG changes. - No acute needs (3) Type 2 diabetes mellitus: Plan: A1c was 6.5% this month. - Sliding scale insulin - Monitor for increased needs while in steroids -> Presently 90 - 230. (4) Depression: Plan: - Continue bupropion & duloxetine (5) Hypertensive heart disease: Plan: BP today is 115/75. - Continue home lisinopril (6) Hyperlipidemia: Plan: - Continue statin (7) DVT prophylaxis: Plan: Lovenox 40 mg SQ daily Admission and Anticipated Discharge Date Admission Date: August 19, 2021 Subjective Stable today. No shortness of breath. Cough stable. No nausea. No appetite. Reports no fevers/chills, chest pain, shortness of breath, abdominal pain, nausea, or vomiting. Physical Exam Constitutional: WD/WN, vitals as above Eyes: EOM intact bilaterally; no conjunctival abnormality ENMT: external ear and nose normal, oropharynx normal Neck: trachea midline, no thyromegaly normal visual inspection Respiratory: + labored breathing and + cough; no respiratory distress Cardiovascular: RRR, no murmur, no edema Gastrointestinal (Abdomen): Inspection/Auscultation: abdomen normal to inspection; abdomen not distended Musculoskeletal: no cyanosis or clubbing, extremities motor strength 5/5 Skin: no rashes, warm and dry Neurologic: moves all extremities and awake Psychiatric: Orientation: alert, oriented to person and cooperative Results & Data Results & Data ([facility]) Vital Signs (Past 12 Hours) Vital Signs Temp Pulse Pulse Resp BP Pulse Ox 08/23/21 11:50 37.0 C 86 16 116/71 94 08/23/21 07:08 80 08/23/21 06:03 36.5 C 87 20 131/86 96 PG Care Time/CCT Total # of Minutes Spent Total Time Spent with Patient: Total time spent is greater than 50% in coordination of care (as documented) at patient's floor/unit and/or counseling patient: Coding Level of Care Code 60939 Subseq Hosp Care Lvl 2 Diagnoses COVID-19 U07.1 Elevated troponin R77.8 Type 2 diabetes mellitus E11.9 Diabetes mellitus complication status: without complication Diabetes mellitus ferry terminal supervisor insulin use: without ferry terminal supervisor use Depression F33.0 Active/Remission status: currently active Depression Type: major depressive disorder Major depression episode severity: mild Major depression recurrence: recurrent Hypertensive heart disease I11.9 Heart failure presence: without heart failure Hyperlipidemia E78.2 Hyperlipidemia type: mixed hyperlipidemia DVT prophylaxis Z29.9 (1) Type 2 diabetes mellitus Diabetes mellitus complication status: without complication Diabetes mellitus intermediate insulin use: without ferry terminal supervisor use Qualified Code(s): E11.9 - Type 2 diabetes mellitus without complications (2) Depression Active/Remission status: currently active Depression Type: major depressive disorder Major depression episode severity: mild Major depression recurrence: recurrent Qualified Code(s): F33.0 - Major depressive disorder, recurrent, mild (3) Hyperlipidemia Hyperlipidemia type: mixed hyperlipidemia Qualified Code(s): E78.2 - Mixed hyperlipidemia (4) Hypertensive heart disease Heart failure presence: without heart failure Qualified Code(s): I11.9 - Hypertensive heart disease without heart failure
[2021-08-23] MEDS: REMDESIVIR 100 MG in SODIUM CHLORIDE 0.9% 230 ML IV SCH (20:20)
[2021-08-23] MEDS: ATORVASTATIN 10 MG TAB PO SCH (20:36)
[2021-08-23] MEDS: SODIUM CHLORIDE 0.9% 10ML FLUSH IV SCH (21:40)
[2021-08-24] MEDS: DULoxetine HCL 60 MG CAP PO SCH (08:12)
[2021-08-24] MEDS: dexAMETHasone 6 MG in SYRINGE 0 ML IV SCH (08:12)
[2021-08-24] MEDS: AZITHROMYCIN 250 MG TAB PO SCH (08:12)
[2021-08-24] MEDS: lisinopril 5 MG TAB PO SCH (08:12)
[2021-08-24] MEDS: guaiFENesin 600 MG TABCR PO SCH ×2 (08:12→20:37)
[2021-08-24] MEDS: PANTOprazole 40 MG TAB PO SCH (08:12)
[2021-08-24] MEDS: buPROPion SR 100 MG TABCR PO SCH ×2 (08:12→20:36)
[2021-08-24] MEDS: INSULIN ASPART 100 UNITS/ML 3 ML PEN SC SCH ×4 (08:20→20:37)
[2021-08-24 08:57] LABS: Hematocrit (blood only) 46.4 % (37-47); Hemoglobin 15.5 g/dL (12.0-16.0); Mean Corpuscular Hemoglobin 30.6 pg (25-34); Mean Corpuscular Hgb Conc 33.4 g/dL (32-36); Mean Corpuscular Volume 91.7 fL (80-100); Mean Platelet Volume 11.8 fL (7.4-10.4); Platelet Count 199 K/uL (130-400); RDW Coefficient of Variation 12.9 % (11.5-14.5); RDW Standard Deviation 43.3 fL (36.4-46.3); Red Blood Count 5.06 M/uL (4.2-5.4); White Blood Count 10.09 K/uL (4.8-10.8)
--- NOTE | 2021-08-24 09:00 | Hospitalist Progress Note ---
Date of Service August 24, 2021 Assessment & Plan (1) COVID-19: Plan: Acute respiratory failure with hypoxemia secondary to Covid pneumonia - tested positive ~08/12/2021. Pneumonia due to COVID19. - Continue dexamethasone 6 mg IV daily (End date: 08/28/2021) - Continue remdesivir - Presently needing ~2L - 3L NC. Stable from yesterday. Encourage good PT/OT to prevent atelectasis and getting weaker. Stable today. Likely discharge to daughter's house in 1-2 days. Note: Her here on 08/23 of Covid. Daughters have safety concerns for home as she has previously stated she has pills hidden away in her house. - PT recommend 24/7 care. Per case management note from 08/24 daughters are try to coordinate home care coverage for 24/7 care (2) Elevated troponin: Plan: Troponin steady at 0.06. No chest pain or EKG changes. - No acute needs (3) Type 2 diabetes mellitus: Plan: A1c was 6.5% this month. - Sliding scale insulin - Monitor for increased needs while in steroids -> Presently 90 - 230. (4) Depression: Plan: - Continue bupropion & duloxetine (5) Hypertensive heart disease: Plan: BP today is 115/75. - Continue home lisinopril (6) Hyperlipidemia: Plan: - Continue statin (7) DVT prophylaxis: Plan: Lovenox 40 mg SQ daily Admission and Anticipated Discharge Date Admission Date: August 19, 2021 Subjective Patient extremely hard of hearing she offers no focal complaints oxygen requirements continued to decline coordinating with family arranging 24/7 home care Review of Systems Review of Systems: Mild distress and fatigue no headache, no visual changes no speech or swallowing issues no chest pain, pressure or palpitations lessening shortness of breath, cough or wheezes no abdominal pain, nausea or vomiting, diarrhea or constipation no dysuria, hematuria or frequency no focal joint pain or swelling no back pain, CVA tenderness or radicular pain no bruising, bleeding or rashes no focal signs of weakness or numbness or altered sensation no complaints of anxiety or depression.. Physical Exam Physical Exam: The patient appeared well nourished and normally developed. Vital signs as documented. Head exam is normocephalic atraumatic Neck is without JVD, thyromegaly, or carotid bruits. Lungs are continued bibasilar rales Cardiac exam, Rhythm is regular.. No murmurs, rubs or gallops. Abdominal exam reveals normal bowel sounds, soft non tender, no masses Extremities are nonedematous and both pedal pulses are present Neurologic exam is alert and oriented, no focal loss of strength or sensation Skin is without bruises or rashes Psychologically is without concerns for anxiety or depression Results & Data Results & Data ([facility]) Vital Signs (Past 12 Hours) Vital Signs Temp Pulse Pulse Resp BP Pulse Ox 08/24/21 08:11 97.9 F 85 18 128/80 92 08/24/21 07:26 77 08/24/21 04:17 97.5 F L 76 18 133/75 94 08/24/21 00:22 74 08/23/21 23:53 97.5 F L 106 H 18 127/60 94 PG Care Time/CCT Total # of Minutes Spent Total Time Spent with Patient: Total time spent is greater than 50% in coordination of care (as documented) at patient's floor/unit and/or counseling patient: Coding Level of Care Code 08861 Subseq Hosp Care Lvl 2 Diagnoses COVID-19 U07.1 Elevated troponin R77.8 Type 2 diabetes mellitus E11.9 Diabetes mellitus complication status: without complication Diabetes mellitus rodent exterminator insulin use: without mcc use Depression F33.0 Active/Remission status: currently active Depression Type: major depressive disorder Major depression episode severity: mild Major depression recurrence: recurrent Hypertensive heart disease I11.9 Heart failure presence: without heart failure Hyperlipidemia E78.2 Hyperlipidemia type: mixed hyperlipidemia DVT prophylaxis Z29.9 (1) Type 2 diabetes mellitus Diabetes mellitus complication status: without complication Diabetes mellitus rodent exterminator insulin use: without rodent exterminator use Qualified Code(s): E11.9 - Type 2 diabetes mellitus without complications (2) Depression Active/Remission status: currently active Depression Type: major depressive disorder Major depression episode severity: mild Major depression recurrence: recurrent Qualified Code(s): F33.0 - Major depressive disorder, recurrent, mild (3) Hyperlipidemia Hyperlipidemia type: mixed hyperlipidemia Qualified Code(s): E78.2 - Mixed hyperlipidemia (4) Hypertensive heart disease Heart failure presence: without heart failure Qualified Code(s): I11.9 - Hypertensive heart disease without heart failure
[2021-08-24 09:36] LABS: BUN Creatinine Ratio 39.1 (10-20); Creatinine Clr Calc Pharmacy 62.4 ml/min; Est GFR (African American) 97.5 ml/min; Est GFR (Non-African American) 84.2 ml/min; Potassium 3.5 mmol/L (3.5-5.1)
[2021-08-24] MEDS: ATORVASTATIN 10 MG TAB PO SCH (20:36)
[2021-08-25] MEDS: INSULIN ASPART 100 UNITS/ML 3 ML PEN SC SCH ×4 (08:57→20:13)
[2021-08-25] MEDS: PANTOprazole 40 MG TAB PO SCH (08:57)
[2021-08-25] MEDS: DULoxetine HCL 60 MG CAP PO SCH (08:57)
[2021-08-25] MEDS: buPROPion SR 100 MG TABCR PO SCH ×2 (08:57→20:13)
[2021-08-25] MEDS: AZITHROMYCIN 250 MG TAB PO SCH (08:57)
[2021-08-25] MEDS: guaiFENesin 600 MG TABCR PO SCH ×2 (08:57→20:13)
[2021-08-25] MEDS: lisinopril 5 MG TAB PO SCH (08:57)
[2021-08-25] MEDS: dexAMETHasone 6 MG in SYRINGE 0 ML IV SCH (09:11)
--- NOTE | 2021-08-25 17:11 | Hospitalist Progress Note ---
Date of Service August 25, 2021 Assessment & Plan (1) COVID-19: Plan: Acute respiratory failure with hypoxemia secondary to Covid pneumonia - tested positive ~08/12/2021. Pneumonia due to COVID19. - Continue dexamethasone 6 mg IV daily (End date: 08/28/2021) - Complete remdesivir - Presently needing ~2L - NC. Stable, . Likely discharge to daughter's care Note: Her here on 08/23 of Covid. Daughters have safety concerns for home as she has previously stated she has pills hidden away in her house. - PT recommend 24/7 care. Per case management daughters are try to coordinate home care coverage for 24/7 care (2) Elevated troponin: Plan: Troponin steady at 0.06. No chest pain or EKG changes. - No acute needs (3) Type 2 diabetes mellitus: Plan: A1c was 6.5% this month. - Sliding scale insulin - Monitor for increased needs while in steroids -> Presently 90 - 230. (4) Depression: Plan: - Continue bupropion & duloxetine (5) Hypertensive heart disease: Plan: BP today is 115/75. - Continue home lisinopril (6) Hyperlipidemia: Plan: - Continue statin (7) DVT prophylaxis: Plan: Lovenox 40 mg SQ daily Admission and Anticipated Discharge Date Admission Date: August 19, 2021 Subjective Patient extremely hard of hearing she offers no focal complaints oxygen r equirements continued to decline coordinating with family arranging 24/7 home care, family planning to take to [facility], pt may need home oxgen continue supportive care Review of Systems Review of Systems: Mild distress and fatigue no headache, no visual changes no speech or swallowing issues no chest pain, pressure or palpitations lessening shortness of breath, cough or wheezes no abdominal pain, nausea or vomiting, diarrhea or constipation no dysuria, hematuria or frequency no focal joint pain or swelling no back pain, CVA tenderness or radicular pain no bruising, bleeding or rashes no focal signs of weakness or numbness or altered sensation no complaints of anxiety or depression.. Physical Exam Physical Exam: The patient appeared well nourished and normally developed. Vital signs as documented. Head exam is normocephalic atraumatic Neck is without JVD, thyromegaly, or carotid bruits. Lungs are continued bibasilar rales Cardiac exam, Rhythm is regular.. No murmurs, rubs or gallops. Abdominal exam reveals normal bowel sounds, soft non tender, no masses Extremities are nonedematous and both pedal pulses are present Neurologic exam is alert and oriented, no focal loss of strength or sensation Skin is without bruises or rashes Psychologically is without concerns for anxiety or depression Results & Data Results & Data ([facility]) Vital Signs (Past 12 Hours) Vital Signs Temp Pulse Pulse Resp BP Pulse Ox 08/25/21 15:52 98.2 F 88 18 137/88 95 08/25/21 15:00 89 08/25/21 11:55 98.1 F 93 H 20 139/87 90 08/25/21 09:00 87 L 08/25/21 07:39 97.9 F 81 18 126/79 90 08/25/21 07:00 76 PG Care Time/CCT Total # of Minutes Spent Total Time Spent with Patient: Total time spent is greater than 50% in coordination of care (as documented) at patient's floor/unit and/or counseling patient: Coding Level of Care Code 28878 Subseq Hosp Care Lvl 1 Diagnoses COVID-19 U07.1 Elevated troponin R77.8 Type 2 diabetes mellitus E11.9 Diabetes mellitus [facility] insulin use: without exterminator helper use Diabetes mellitus complication status: without complication Depression F33.0 Depression Type: major depressive disorder Major depression recurrence: recurrent Active/Remission status: currently active Major depression episode severity: mild Hypertensive heart disease I11.9 Heart failure presence: without heart failure Hyperlipidemia E78.2 Hyperlipidemia type: mixed hyperlipidemia DVT prophylaxis Z29.9 (1) Type 2 diabetes mellitus Diabetes mellitus exterminator helper insulin use: without [facility] use Diabetes mellitus complication status: without complication Qualified Code(s): E11.9 - Type 2 diabetes mellitus without complications (2) Depression Depression Type: major depressive disorder Major depression recurrence: recurrent Active/Remission status: currently active Major depression episode severity: mild Qualified Code(s): F33.0 - Major depressive disorder, recurrent, mild (3) Hypertensive heart disease Heart failure presence: without heart failure Qualified Code(s): I11.9 - Hypertensive heart disease without heart failure (4) Hyperlipidemia Hyperlipidemia type: mixed hyperlipidemia Qualified Code(s): E78.2 - Mixed hyperlipidemia
[2021-08-25] MEDS: ATORVASTATIN 10 MG TAB PO SCH (20:13)
[2021-08-26] MEDS: guaiFENesin 600 MG TABCR PO SCH ×2 (09:33→20:06)
[2021-08-26] MEDS: AZITHROMYCIN 250 MG TAB PO SCH (09:33)
[2021-08-26] MEDS: lisinopril 5 MG TAB PO SCH (09:33)
[2021-08-26] MEDS: buPROPion SR 100 MG TABCR PO SCH ×2 (09:33→20:06)
[2021-08-26] MEDS: PANTOprazole 40 MG TAB PO SCH (09:33)
[2021-08-26] MEDS: DULoxetine HCL 60 MG CAP PO SCH (09:34)
[2021-08-26] MEDS: dexAMETHasone 6 MG in SYRINGE 0 ML IV SCH (09:34)
[2021-08-26] MEDS: INSULIN ASPART 100 UNITS/ML 3 ML PEN SC SCH ×4 (11:08→20:16)
--- NOTE | 2021-08-26 16:47 | Hospitalist Progress Note ---
Date of Service August 26, 2021 Assessment & Plan (1) COVID-19: Plan: Acute respiratory failure with hypoxemia secondary to Covid pneumonia - tested positive ~08/12/2021. Pneumonia due to COVID19. - Continue dexamethasone 6 mg IV daily (End date: 08/28/2021) - Completed remdesivir - Presently needing ~2L - NC. Stable, . Likely discharge to daughter's care Note: Her here on 08/23 of Covid. Daughters have safety concerns for home as she has previously stated she has pills hidden away in her house. - PT recommend 24/7 care. Per case management daughters are try to coordinate home care coverage for 24/7 care (2) Elevated troponin: Plan: Troponin steady at 0.06. No chest pain or EKG changes. - No acute needs (3) Type 2 diabetes mellitus: Plan: A1c was 6.5% this month. - Sliding scale insulin - Monitor for increased needs while in steroids -> Presently 90 - 230. (4) Depression: Plan: - Continue bupropion & duloxetine (5) Hypertensive heart disease: Plan: BP today is 115/75. - Continue home lisinopril (6) Hyperlipidemia: Plan: - Continue statin (7) DVT prophylaxis: Plan: Lovenox 40 mg SQ daily Admission and Anticipated Discharge Date Admission Date: August 19, 2021 Subjective NO new issues today. Patient extremely hard of hearing she offers no focal complaints oxygen requirements continued to decline coordinating with family arranging 24/7 home care, family planning to take to [facility], pt may need home oxgen continue supportive care Review of Systems Review of Systems: Mild distress and fatigue no headache, no visual changes no speech or swallowing issues no chest pain, pressure or palpitations lessening shortness of breath, cough or wheezes no abdominal pain, nausea or vomiting, diarrhea or constipation no dysuria, hematuria or frequency no focal joint pain or swelling no back pain, CVA tenderness or radicular pain no bruising, bleeding or rashes no focal signs of weakness or numbness or altered sensation no complaints of anxiety or depression.. Physical Exam Physical Exam: The patient appeared well nourished and normally developed. Vital signs as documented. Head exam is normocephalic atraumatic Neck is without JVD, thyromegaly, or carotid bruits. Lungs are continued bibasilar rales Cardiac exam, Rhythm is regular.. No murmurs, rubs or gallops. Abdominal exam reveals normal bowel sounds, soft non tender, no masses Extremities are nonedematous and both pedal pulses are present Neurologic exam is alert and oriented, no focal loss of strength or sensation Skin is without bruises or rashes Psychologically is without concerns for anxiety or depression Results & Data Results & Data ([facility]) Vital Signs (Past 12 Hours) Vital Signs Temp Pulse Resp BP Pulse Ox 08/26/21 08:37 97.7 F 86 18 135/73 92 PG Care Time/CCT Total # of Minutes Spent Total Time Spent with Patient: Total time spent is greater than 50% in coordination of care (as documented) at patient's floor/unit and/or counseling patient: Coding Level of Care Code 70913 Subseq Hosp Care Lvl 1 Diagnoses COVID-19 U07.1 Elevated troponin R77.8 Type 2 diabetes mellitus E11.9 Diabetes mellitus halfway insulin use: without halfway use Diabetes mellitus complication status: without complication Depression F33.0 Depression Type: major depressive disorder Major depression recurrence: recurrent Active/Remission status: currently active Major depression episode severity: mild Hypertensive heart disease I11.9 Heart failure presence: without heart failure Hyperlipidemia E78.2 Hyperlipidemia type: mixed hyperlipidemia DVT prophylaxis Z29.9 (1) Type 2 diabetes mellitus Diabetes mellitus halfway insulin use: without public relations player use Diabetes mellitus complication status: without complication Qualified Code(s): E11.9 - Type 2 diabetes mellitus without complications (2) Depression Depression Type: major depressive disorder Major depression recurrence: recurrent Active/Remission status: currently active Major depression episode severity: mild Qualified Code(s): F33.0 - Major depressive disorder, recurrent, mild (3) Hypertensive heart disease Heart failure presence: without heart failure Qualified Code(s): I11.9 - Hypertensive heart disease without heart failure (4) Hyperlipidemia Hyperlipidemia type: mixed hyperlipidemia Qualified Code(s): E78.2 - Mixed hyperlipidemia
[2021-08-26] MEDS: ATORVASTATIN 10 MG TAB PO SCH (20:06)
[2021-08-27] MEDS: INSULIN ASPART 100 UNITS/ML 3 ML PEN SC SCH ×2 (08:45→12:30)
[2021-08-27] MEDS: lisinopril 5 MG TAB PO SCH (09:17)
[2021-08-27] MEDS: guaiFENesin 600 MG TABCR PO SCH (09:18)
[2021-08-27] MEDS: buPROPion SR 100 MG TABCR PO SCH (09:18)
[2021-08-27] MEDS: dexAMETHasone 6 MG in SYRINGE 0 ML IV SCH (09:18)
[2021-08-27] MEDS: PANTOprazole 40 MG TAB PO SCH (09:18)
[2021-08-27] MEDS: DULoxetine HCL 60 MG CAP PO SCH (09:18)
--- NOTE | 2021-08-27 17:34 | Discharge Summary ---
Date of Service August 27, 2021 Admission HPI Per Admitting Provider Mrs. Reyna is an 86 yo woman with a PMHx of type II diabetes who presented to the [facility] ED for evaluation of diarrhea, cough, agitation and weakness. Of note, her is currently admitted to the COVID unit here in the hospital - both and developed symptoms last Tuesday. They both tested positive for covid-19 (7 days ago) via home test kits. A hospital protective services case worker called their house to check in on the family earlier today- Mrs. Reyna's son in law answered the telephone and informed the hospital special education case manager about Mrs. Reyna's symptoms. The hospital protective services case worker then suggested Mrs. Reyna be brought in for evaluation. Mrs. Reyna had not been vaccinated against covid 19. She is hard of hearing - her daughter states that she was supposed to have a cochlear implant this past fall, but ended up canceling the procedure. 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 Alex Motley's number is [phone]. On arrival to the ED, she was afebrile, with a HR of 95 bpm, a systolic bp > 90; O2 sat was 88% on room air. She was placed on supplemental O2. Her CBC showed a normal WBC count with associated lymphopenia. Blood cultures were drawn. Her hemoglobin was elevated to 17.9. Her K was low at 3.2. Her AST was elevated to 43, ALT was normal. Kidney function was normal. Troponin was 0.064. COVID 19 positive. Her CXR showed findings consistent with a viral PNA along with a large hiatal hernia. A head CT was ordered. She was given an albuterol nebulizer, 6mg IV dexamethoasone, and a liter of NSS with Kcl. Principal Diagnosis acute respiratory failure with hypoxia covid pneumonia Discharge Exam The patient appeared well she is extremely hard of hearing Vital signs as documented. Lungs are bibasilar crackles Cardiac exam, Rhythm is regular.. No murmurs, rubs or gallops. Abdominal exam reveals normal bowel sounds, soft non tender, no masses Extremities are nonedematous and both pedal pulses are normal. Neurologic exam is alert and oriented, no focal loss of strength or sensation Skin is without bruises or rashes Psychologically is without concerns for anxiety or depression. Discharge Data Allergies Allergy/AdvReac Type Severity Reaction Status Date / Time adhesive Allergy Mild RASH Unverified 08/19/21 17:42 codeine Allergy Mild Unknown Unverified 08/19/21 17:42 meperidine AdvReac Unknown Unknown Unverified 08/19/21 17:42 morphine AdvReac Unknown Unknown Unverified 08/19/21 17:42 Consultations 08/19/21 19:30 ED Decision to Admit Stat Hospital Course (1) COVID-19: Acute respiratory failure with hypoxemia secondary to Covid pneumonia - tested positive ~08/12/2021. Pneumonia due to COVID19. - completed dexamethasone - Completed remdesivir - pt requires 2 l with exertion at time of discharge Note: Her here on 08/23 of Covid. Daughters will coordinate home care coverage for 16/05 care (2) Elevated troponin: Troponin steady at 0.06. No chest pain or EKG changes. felt to be type 2 PA - No acute needs (3) Type 2 diabetes mellitus: A1c was 6.5% this month. - Monitor for increased needs while in steroids -> Presently 90 - 230. (4) Depression: - Continue bupropion & duloxetine (5) Hypertensive heart disease: BP today is 115/75. - Continue home lisinopril (6) Hyperlipidemia: - Continue statin Total Time Total Time Spent Total Time Spent (In Minutes): It required greater than 30 minutes to prepare this patient for discharge Discharge Plan Discharge Items Patient Disposition: Home - Self-Care Reason For Visit: COVID 19 Discharge Diagnosis: acute respiratory failure covid pnemonia Condition on Discharge: Fair Activity: Per Instructions section Activity Comment: slowly increase activity Non-emergency contact: Primary Care Provider Call non-emergency contact if: your symptoms worsen and you have a fever Follow-up/Referrals: Adriano Prabhakar III, CRNP [Primary Care Provider] - 09/09/21 9:20 am Diet: Regular Addtl Attending Provider Instructions: you should be on home isolation at least until 08/30/21. that means to wear a mask whenever you are around people who had not had an active covid infection. This would be to wear a mask in a car or in your home. If you do not have any upper respiratory cold symptoms on the , you can come off Home Isolation COVID-19 Instructions The following information about Home Isolation is from the CDC Website: https://www.cdc.gov/coronavirus/2019-ncov/hcp/jfbqwpki-grwfjcj-fiwgkm.html Stay home except to get medical care People who are mildly ill with COVID-19 are able to isolate at home during their illness. You should restrict activities outside your home, except for getting medical care. Do not go to work, school, or public areas. Avoid using public transportation, ride-sharing, or taxis. Separate yourself from other people and animals in your home People: As much as possible, you should stay in a specific room and away from other people in your home. Also, you should use a separate bathroom, if available. Animals: You should restrict contact with pets and other animals while you are sick with COVID-19, just like you would around other people. Although there have not been reports of pets or other animals becoming sick with COVID-19, it is still recommended that people sick with COVID-19 limit contact with animals until more information is known about the virus. When possible, have another member of your household care for your animals while you are sick. If you are sick with COVID-19, avoid contact with your pet, including petting, snuggling, being kissed or licked, and sharing food. If you must care for your pet or be around animals while you are sick, wash your hands before and after you interact with pets and wear a face mask. Call ahead before visiting your doctor If you have a medical appointment, call the healthcare provider and tell them that you have or may have COVID-19. This will help the healthcare providers office take steps to keep other people from getting infected or exposed. Wear a face mask You should wear a face mask when you are around other people (e.g., sharing a room or vehicle) or pets and before you enter a healthcare providers office. If you are not able to wear a face mask (for example, because it causes trouble breathing), then people who live with you should not stay in the same room with you, or they should wear a face mask if they enter your room. Cover your coughs and sneezes Cover your mouth and nose with a tissue when you cough or sneeze. Throw used tissues in a lined trash can. Immediately wash your hands with soap and water for at least 20 seconds or, if soap and water are not available, clean your hands with an alcohol-based hand customer advocacy manager that contains at least 60% alcohol. Clean your hands often Wash your hands often with soap and water for at least 20 seconds, especially after blowing your nose, coughing, or sneezing; going to the bathroom; and before eating or preparing food. If soap and water are not readily available, use an alcohol-based hand customer advocacy manager with at least 60% alcohol, covering all surfaces of your hands and rubbing them together until they feel dry. Soap and water are the best option if hands are visibly dirty. Avoid touching your eyes, nose, and mouth with unwashed hands. Avoid sharing personal household items You should not share dishes, drinking glasses, cups, eating utensils, towels, or bedding with other people or pets in your home. After using these items, they should be washed thoroughly with soap and water. Clean all high-touch surfaces everyday High touch surfaces include counters, tabletops, doorknobs, bathroom fixtures, toilets, phones, keyboards, tablets, and bedside tables. Also, clean any surfaces that may have blood, stool, or body fluids on them. Use a household cleaning spray or wipe, according to the label instructions. Labels contain instructions for safe and effective use of the cleaning product including precautions you should take when applying the product, such as wearing gloves and making sure you have good ventilation during use of the product. Monitor your symptoms Seek prompt medical attention if your illness is worsening (e.g., difficulty breathing).Beforeseeking care, call your healthcare provider and tell them that you have, or are being evaluated for, COVID-19. Put on a face mask before you enter the facility. These steps will help the healthcare providers office to keep other people in the office or waiting room from getting infected or exposed. Ask your healthcare provider to call the local or state health department. Persons who are placed under active monitoring or facilitated self- monitoring should follow instructions provided by their local health department or occupational health professionals, as appropriate. When working with your local health department check their available hours. If you have a medical emergency and need to call 911, notify the dispatch personnel that you have, or are being evaluated for COVID-19. If possible, put on a face mask before emergency medical services arrive. Discontinuing home isolation Patients with confirmed COVID-19 should remain under home isolation precautions until the risk of secondary transmission to others is thought to be low. The decision to discontinue home isolation precautions should be made on a [id number] basis, in consultation with healthcare providers and state and local health departments. Pending Studies at Discharge: No Stand-Alone Forms: My [facility] [employer], Smoking Cessation Medications and DC Order Prescriptions: New (DME) Oxygen Home Liters Per Minute See Rx Instructions .ROUTE Qty: 1 RF: 0 Continued (DME) OneTouch Verio test strips Strip See Dose Instructions .ROUTE .MEDSUPPLY Qty: 100 RF: 1 duloxetine 60 mg capsule,delayed release(DR/EC) 60 mg PO DAILY Qty: 90 RF: 3 lisinopril 5 mg tablet 5 mg PO DAILY Qty: 90 RF: 3 glimepiride 2 mg tablet 2 mg PO DAILY Qty: 90 RF: 1 atorvastatin 10 mg tablet 10 mg PO HS Qty: 90 RF: 1 bupropion HCl [Wellbutrin SR] 100 mg tablet sustained-release 12 hr 100 mg PO BID Qty: 180 RF: 1 (DME) lancets [OneTouch Delica Lancets] 33 gauge misc See Dose Instructions .ROUTE .MEDSUPPLY Qty: 100 RF: 0 (DME) blood-glucose meter [OneTouch Verio Flex meter] misc See Dose Instructions .ROUTE .MEDSUPPLY Qty: 1 RF: 0 aspirin [Aspirin Low Dose] 81 mg Tablet,Delayed Release (Dr/Ec) 81 mg PO DAILY RF: 0 Discharge Orders: Discharge Order (Routine); Ordered 08/27/21 Ordered By: Km Mann/Other Patient Handouts: High Blood Sugar (Hyperglycemia), Hypoglycemia (Low Blood Sugar), Managing Type 2 Diabetes Admission Data Admit Date/Time: 08/19/21 20:21 Attending Provider: Km Tellez Admit Provider: Jessenia Paulson Primary Care Provider: Adriano Prabhakar III Other Providers: Carmelo Vallejo Other Interventions: Discharge Summary Assessment (RN) Last Done: 08/27/21 12:15 Coding Level of Care Code D/C DAY MANAGEMENT >30 MINS Diagnoses COVID-19 U07.1 Elevated troponin R77.8 Type 2 diabetes mellitus E11.9 Diabetes mellitus senior living insulin use: without senior living use Diabetes mellitus complication status: without complication Depression F33.0 Depression Type: major depressive disorder Major depression recurrence: recurrent Active/Remission status: currently active Major depression episode severity: mild Hypertensive heart disease I11.9 Heart failure presence: without heart failure Hyperlipidemia E78.2 Hyperlipidemia type: mixed hyperlipidemia
[2021-08-27] MEDS ORDERED: ENOXAPARIN INJ 40 MG/0.4 ML SYR SQ SCH (23:00)
== END 2021-08-27 16:14 | disposition home or self-care (01) | DRG 177 ==
LOC: ED 14:54 → 2N 20:21 → SUATTDRO 20:21 → 2N 22:10
DX: E87.6 Hypokalemia; U07.1 COVID-19; F32.A Depression, unspecified; I11.9 Hypertensive heart disease without heart failure; Z79.899 Other long term (current) drug therapy; K62.5 Hemorrhage of anus and rectum; Z91.048 Other nonmedicinal substance allergy status; Z79.82 Long term (current) use of aspirin; E11.9 Type 2 diabetes mellitus without complications; J96.01 Acute respiratory failure with hypoxia; E78.5 Hyperlipidemia, unspecified; R74.01 Elevation of levels of liver transaminase levels; Z66 Do not resuscitate; Z88.5 Allergy status to narcotic agent; H91.93 Unspecified hearing loss, bilateral; Z79.84 Long term (current) use of oral hypoglycemic drugs; J12.82 Pneumonia due to coronavirus disease 2019; R77.8 Other specified abnormalities of plasma proteins